=== PATIENT | female | born 1970 | race Two or more races ===

== ENCOUNTER 2020-06-06 06:48 | Emergency (ER) | payer MEDICARE, MEDICAID ==
[~2020-06-06] VITALS: Ht 157.5 cm; Wt 99.8 kg
[2020-06-06 08:42] LABS: Basophils # (auto) 0.1 10 ^3/uL (0-0.2); Basophils % (auto) 0.8 % (0.0-2.0); Eosinophils # (auto) 0.4 10 ^3/uL (0-0.8); Eosinophils % (auto) 5.2 % (0.0-7.0); Hematocrit 39.3 % (36.0-46.0); Hemoglobin 13.1 g/dL (12.2-16.2); Lymphocytes # (auto) 3.4 10 ^3/uL (0.4-5.4); Lymphocytes % (auto) 43.3 % (10.0-50.0); Mean Corpuscular Hemoglobin 28.7 pg (28.0-32.0); Mean Corpuscular Hgb Conc. 33.3 g/dL (32.0-36.0); Mean Corpuscular Volume 86.2 fL (80.0-100.0); Monocytes # (auto) 0.4 10 ^3/uL (0-1.3); Monocytes % (auto) 5.3 % (0.0-12.0); Neutrophils # (auto) 3.5 10 ^3/uL (1.6-8.6); Neutrophils % (auto) 45.4 % (37.0-80.0); Nucleated Red Blood Cells % 0.2 %; Platelet Count (auto) 168 10^3/uL (140-450); Red Blood Cells 4.56 10^6/uL (4.0-5.20); Red Cell Distribution Width 14.5 % (11.8-14.3); White Blood Cell 7.7 10^3/uL (4.4-10.8)
[2020-06-06 09:04] LABS: Albumin 3.3 g/dL (3.4-5.0); Anion Gap 10 (5-15); Blood Urea Nitrogen 12 mg/dL (7-18); Calcium 8.5 mg/dL (8.5-10.1); Carbon Dioxide 24 mmol/L (21-32); Chloride 96 mmol/L (98-107); Potassium 3.8 mmol/L (3.5-5.1); Sodium 130 mmol/L (136-145)
[2020-06-06 09:10] LABS: Alanine Aminotransferase 57 U/L (13-56); Alkaline Phosphatase 119 U/L (45-117); Aspartate Aminotransferase 41 U/L (15-37); BUN/Creatinine Ratio 10.7; Bilirubin, Total 0.2 mg/dL (0.2-1.0); GFR African American 66 mL/min; GFR Non-African American 55 mL/min; Total Protein 6.6 g/dL (6.4-8.2)
[2020-06-06 09:10] LABS: Urine Bacteria FEW /hpf (None Seen); Urine Blood TRACE /uL (Negative); Urine Mucus FEW (None Seen); Urine Specific Gravity 1.028 (1.001-1.035); Urine WBC 2 /hpf (0 - 5)
[2020-06-06 09:13] LABS: Glucose 453 mg/dL (74-106)
[2020-06-06 09:30] VITALS: BP 113/65
[2020-06-06] MEDS ORDERED: InsuLIN REG 1unit/0.01ml Soln (100units/ml) IV ONE (09:30)
[2020-06-06] MEDS ORDERED: SODIUM CHLORIDE 0.9% 1,000 ML IV ONE ×2 (09:30)
[2020-06-06] MEDS ORDERED: cefTRIAXone 1GM/50ML D5W 50 ML IV ONE (10:45)
== END 2020-06-06 11:20 | disposition home or self-care (01) ==
LOC: ER 06:48
DX: E11.21 Type 2 diabetes mellitus with diabetic nephropathy (principal); E11.65 Type 2 diabetes mellitus with hyperglycemia; N39.0 Urinary tract infection, site not specified; I10 Essential (primary) hypertension; Z88.6 Allergy status to analgesic agent; Z20.822 Contact with and (suspected) exposure to COVID-19
CPT/HCPCS: 36415; 36600; 71045; 72131; 80053; 81001; 82805; 84484; 85025; 87426; 96361; 96365; 96375; 99285; C9803; J0696; J7030; U0003

== ENCOUNTER 2021-10-18 23:33 | Emergency (ER) | payer MEDICARE, MEDICAID ==
[~2021-10-18] VITALS: Ht 160 cm; Wt 114.0 kg
[2021-10-19] MEDS ORDERED: SODIUM CHLORIDE 0.9% 1,000 ML IV ONE
[2021-10-19] MEDS ORDERED: ACETAMINOPHEN 325 MG TAB PO ONE
[2021-10-19 00:41] LABS: Urine Bacteria FEW /hpf (None Seen); Urine Blood TRACE /uL (Negative); Urine Specific Gravity 1.014 (1.001-1.035); Urine WBC 232 /hpf (0 - 5)
[2021-10-19 00:48] LABS: Basophils # (auto) 0.1 10 ^3/uL (0-0.2); Basophils % (auto) 0.7 % (0.0-2.0); Eosinophils # (auto) 0 10 ^3/uL (0-0.8); Eosinophils % (auto) 0.2 % (0.0-7.0); Hematocrit 39.1 % (36.0-46.0); Hemoglobin 13.2 g/dL (12.2-16.2); Lymphocytes # (auto) 1.6 10 ^3/uL (0.4-5.4); Lymphocytes % (auto) 14.3 % (10.0-50.0); Mean Corpuscular Hemoglobin 29.2 pg (28.0-32.0); Mean Corpuscular Hgb Conc. 33.9 g/dL (32.0-36.0); Mean Corpuscular Volume 86.3 fL (80.0-100.0); Monocytes # (auto) 1.1 10 ^3/uL (0-1.3); Monocytes % (auto) 9.5 % (0.0-12.0); Neutrophils # (auto) 8.4 10 ^3/uL (1.6-8.6); Neutrophils % (auto) 75.3 % (37.0-80.0); Nucleated Red Blood Cells % 0.2 %; Red Blood Cells 4.53 10^6/uL (4.0-5.20); Red Cell Distribution Width 13.5 % (11.8-14.3); White Blood Cell 11.1 10^3/uL (4.4-10.8)
[2021-10-19 00:59] LABS: Albumin 3.5 g/dL (3.4-5.0); BUN/Creatinine Ratio 12.7; Calcium 8.3 mg/dL (8.5-10.1); Potassium 3.3 mmol/L (3.5-5.1)
[2021-10-19] MEDS ORDERED: cefTRIAXone SOD 1,000 MG VL IV ONE (01:00)
[2021-10-19 01:02] LABS: Bilirubin, Total 0.4 mg/dL (0.2-1.0); Total Protein 7.2 g/dL (6.4-8.2)
[2021-10-19] MEDS ORDERED: IBUPROFEN 800 MG TAB PO ONE (02:30)
[2021-10-19] MEDS ORDERED: CEPH-510 PO (03:23)
[2021-10-19 03:54] VITALS: BP 114/58
== END 2021-10-19 04:17 | disposition home or self-care (01) ==
LOC: ER 23:33
DX: N39.0 Urinary tract infection, site not specified (principal); R50.9 Fever, unspecified; I10 Essential (primary) hypertension; E11.9 Type 2 diabetes mellitus without complications; E78.5 Hyperlipidemia, unspecified; E03.9 Hypothyroidism, unspecified; G89.29 Other chronic pain; M54.9 Dorsalgia, unspecified; Z88.8 Allergy status to other drugs, medicaments and biological substances; Z20.822 Contact with and (suspected) exposure to COVID-19
CPT/HCPCS: 36415; 71045; 80053; 81001; 83605; 84443; 84484; 85025; 87040; 87426; 93005; 96361; 96374; 99285; J0696; J7030

== ENCOUNTER 2023-08-02 10:35 | Inpatient (IN) | payer MEDICAID ==
[~2023-08-02] VITALS: Ht 157.5 cm; Wt 94.4 kg
[~2023-08-02 10:35] MED LIST: CEPH-510 PO
[2023-08-02 11:30] LABS: Basophils # (auto) 0.1 10 ^3/uL (0-0.2); Basophils % (auto) 0.6 % (0.0-2.0); Eosinophils # (auto) 0.2 10 ^3/uL (0-0.8); Eosinophils % (auto) 1.2 % (0.0-7.0); Hematocrit 43.7 % (36.0-46.0); Hemoglobin 14.3 g/dL (12.2-16.2); Lymphocytes # (auto) 0.8 10 ^3/uL (0.4-5.4); Lymphocytes % (auto) 4.3 % (10.0-50.0); Mean Corpuscular Hemoglobin 28.4 pg (28.0-32.0); Mean Corpuscular Hgb Conc. 32.8 g/dL (32.0-36.0); Mean Corpuscular Volume 86.8 fL (80.0-100.0); Monocytes # (auto) 1.2 10 ^3/uL (0-1.3); Monocytes % (auto) 6.9 % (0.0-12.0); Neutrophils # (auto) 15.7 10 ^3/uL (1.6-8.6); Nucleated Red Blood Cells % 0.1 %; Red Blood Cells 5.04 10^6/uL (4.0-5.20); Red Cell Distribution Width 14.1 % (11.8-14.3)
[2023-08-02] MEDS: SODIUM CHLORIDE 0.9% 500 ML IV ONE (11:39)
[2023-08-02] MEDS: ONDANSETRON HCL 4 MG/2 ML VIAL IV ONE (11:39)
[2023-08-02] MEDS: MORPHINE SULFATE INJ 2 MG/ml SYRG IV ONE (11:40)
[2023-08-02 11:44] LABS: Chloride 97 mmol/L (98-107); Potassium 3.3 mmol/L (3.5-5.1); Sodium 131 mmol/L (136-145)
[2023-08-02] MEDS: ACETAMINOPHEN 325 MG TAB PO ONE (11:44)
[2023-08-02 11:45] LABS: Anion Gap 10 (5-15); Carbon Dioxide 24 mmol/L (20-30)
[2023-08-02] MEDS: SODIUM CHLORIDE 0.9% 1,500 ML IV ONE (11:45)
[2023-08-02] MEDS: VANCOMYCIN 1GM/200ML 200 ML IV ONE (11:48)
[2023-08-02 11:50] LABS: BUN/Creatinine Ratio 6.2 (10.0-20.0); Blood Urea Nitrogen 8 mg/dL (9-23); Glucose 252 mg/dL (74-106)
[2023-08-02 12:12] LABS: Lactic Acid w/Reflex 2.2 mmol/L (0.4-2.0)
[2023-08-02 12:45] VITALS: PULSE 53; RESP 18; O2SAT 96
[2023-08-02] MEDS ORDERED: MELO15TA29 PO (14:15)
[2023-08-02] MEDS ORDERED: ALBU108A5 INH (14:15)
[2023-08-02] MEDS ORDERED: FLUT50SP NAS (14:15)
[2023-08-02] MEDS ORDERED: TIZA6CAP10 PO (14:15)
[2023-08-02] MEDS ORDERED: DULO1CAP6 PO (14:15)
[2023-08-02] MEDS ORDERED: ATOR10TA52 PO (14:15)
[2023-08-02] MEDS ORDERED: LISI2.5T47 PO (14:15)
[2023-08-02] MEDS ORDERED: EMPA1TAB PO (14:15)
[2023-08-02] MEDS ORDERED: LINA5TAB PO (14:15)
[2023-08-02] MEDS ORDERED: METF-1145 PO (14:15)
[2023-08-02] MEDS ORDERED: TRAZ-227 PO (14:15)
[2023-08-02] MEDS ORDERED: OXYC-998 PO (14:15)
[2023-08-02] MEDS: SULFAMETH-TRIMETH 80/16MG-ML 15 ML in D5W 5% 500 ML IV ONE (14:49)
[2023-08-02] MEDS ORDERED: ONDANSETRON HCL 4 MG/2 ML VIAL IV PRN (15:15)
[2023-08-02] MEDS ORDERED: ACETAMINOPHEN 325 MG TAB PO PRN (15:15)
[2023-08-02] MEDS ORDERED: DOCUSATE SOD 100 MG CAP PO PRN (15:15)
[2023-08-02] MEDS ORDERED: VANCOMYCIN PER PHARMACY 0 MG IV SCH (15:15)
[2023-08-02] MEDS: SODIUM CHLORIDE 0.9% 1,000 ML IV SCH (15:37)
[2023-08-02] MEDS: HYDROcodone-ACET 5/325MG TAB PO PRN (16:06)
[2023-08-02] MEDS ORDERED: DEXTROSE (50%) 50ML SYRG IV PRN (19:15)
[2023-08-02] MEDS: MORPHINE SULFATE INJ 2 MG/ml SYRG IV PRN (19:30)
[2023-08-02] MEDS: ACCU-CHEK COMFORT CURVE STRIP VI SCH (21:28)
[2023-08-02] MEDS: InsuLIN REG 1unit/0.01ml Soln (100units/ml) SC SCH (21:36)
[2023-08-02 22:00] VITALS: BP 125/73; PULSE 88; RESP 18; TEMP 98.2; O2SAT 95
[2023-08-02] MEDS: SODIUM CHLOR 0.9% PF (SALINE LOCK) 10ML VIAL/SYR IV SCH (22:00)
[2023-08-02] MEDS: DULoxetine HCL 30 MG CAP PO SCH (23:04)
[2023-08-02] MEDS: traZODone HCL 50 MG TAB PO SCH (23:04)
[2023-08-02] MEDS: CLINDAMYCIN 600MG IV 50 ML IV SCH (23:05)
[2023-08-03] VITALS (8 sets, daily range): BP systolic 98–142; BP diastolic 57–73; PULSE 83–95; RESP 16–20; TEMP 97.6–98.5; O2SAT 93–97
[2023-08-03 06:45] LABS: Basophils # (auto) 0 10 ^3/uL (0-0.2); Basophils % (auto) 0.2 % (0.0-2.0); Eosinophils # (auto) 0 10 ^3/uL (0-0.8); Eosinophils % (auto) 0.3 % (0.0-7.0); Hematocrit 36.6 % (36.0-46.0); Hemoglobin 12.2 g/dL (12.2-16.2); Lymphocytes # (auto) 0.8 10 ^3/uL (0.4-5.4); Lymphocytes % (auto) 5.5 % (10.0-50.0); Mean Corpuscular Hemoglobin 28.4 pg (28.0-32.0); Mean Corpuscular Hgb Conc. 33.4 g/dL (32.0-36.0); Monocytes # (auto) 0.9 10 ^3/uL (0-1.3); Monocytes % (auto) 5.9 % (0.0-12.0); Neutrophils # (auto) 13.2 10 ^3/uL (1.6-8.6); Neutrophils % (auto) 88.1 % (37.0-80.0); Red Blood Cells 4.31 10^6/uL (4.0-5.20); Red Cell Distribution Width 13.7 % (11.8-14.3)
[2023-08-03 07:04] LABS: Alanine Aminotransferase 14 U/L (7-40); Albumin 4.2 g/dL (3.2-4.8); Alkaline Phosphatase 131 U/L (46-116); Anion Gap 7 (5-15); Aspartate Aminotransferase 10 U/L (13-40); BUN/Creatinine Ratio 12.2 (10.0-20.0); Blood Urea Nitrogen 12 mg/dL (9-23); Calcium 9.8 mg/dL (8.7-10.4); Carbon Dioxide 23 mmol/L (20-30); Chloride 107 mmol/L (98-107); Glucose 174 mg/dL (74-106); Potassium 4.3 mmol/L (3.5-5.1); Sodium 137 mmol/L (136-145)
[2023-08-03 07:05] LABS: Bilirubin, Total 0.3 mg/dL (0.2-1.0); Total Protein 6.9 g/dL (5.7-8.2)
[2023-08-03] MEDS: metFORMIN HYDROCHLORIDE 500 MG TAB PO SCH (08:00)
[2023-08-03] MEDS: ATORVASTATIN 20 MG TAB PO SCH (08:19)
[2023-08-03] MEDS: EMPAGLIFLOZIN 10 MG TAB PO SCH (08:19)
[2023-08-03] MEDS: LISINOPRIL 5 MG TAB PO SCH (10:19)
[2023-08-03] MEDS: levoFLOXacin 500MG 100 ML IV SCH (12:36)
[2023-08-03] MEDS: oxyCODONE HCL 5MG TAB PO PRN (17:02)
[2023-08-03] MEDS: VANCOMYCIN 1GM/200ML 200 ML IV SCH (18:13)
[2023-08-04] VITALS (9 sets, daily range): BP systolic 100–142; BP diastolic 60–76; PULSE 69–91; RESP 17–20; TEMP 97.5–98.1; O2SAT 94–98
[2023-08-04 07:26] LABS: Basophils # (auto) 0 10 ^3/uL (0-0.2); Basophils % (auto) 0.2 % (0.0-2.0); Eosinophils # (auto) 0.1 10 ^3/uL (0-0.8); Eosinophils % (auto) 1.2 % (0.0-7.0); Hematocrit 38.1 % (36.0-46.0); Hemoglobin 12.6 g/dL (12.2-16.2); Lymphocytes # (auto) 1.4 10 ^3/uL (0.4-5.4); Lymphocytes % (auto) 11.2 % (10.0-50.0); Mean Corpuscular Hemoglobin 28.3 pg (28.0-32.0); Mean Corpuscular Hgb Conc. 33.1 g/dL (32.0-36.0); Mean Corpuscular Volume 85.5 fL (80.0-100.0); Monocytes # (auto) 0.6 10 ^3/uL (0-1.3); Monocytes % (auto) 4.8 % (0.0-12.0); Neutrophils # (auto) 10.1 10 ^3/uL (1.6-8.6); Neutrophils % (auto) 82.6 % (37.0-80.0); Red Blood Cells 4.46 10^6/uL (4.0-5.20); Red Cell Distribution Width 14.5 % (11.8-14.3); White Blood Cell 12.2 10^3/uL (4.4-10.8)
[2023-08-04 07:45] LABS: Anion Gap 8 (5-15); Calcium 9.6 mg/dL (8.7-10.4); Carbon Dioxide 23 mmol/L (20-30); Chloride 110 mmol/L (98-107); Potassium 4.5 mmol/L (3.5-5.1); Sodium 141 mmol/L (136-145)
[2023-08-04 07:48] LABS: INR 0.94 (0.9-1.15); Partial Thromboplastin Time 27.6 SEC (24.5-34.5)
[2023-08-04 07:51] LABS: Blood Urea Nitrogen 18 mg/dL (9-23); Glucose 188 mg/dL (74-106)
[2023-08-04] MEDS ORDERED: PROPOFOL 10 MG/ML 20 ML IV ONE (12:30)
[2023-08-04] MEDS ORDERED: fentaNYL CITRATE 100 MCG/2 ML VL ONE (12:30)
[2023-08-04] MEDS ORDERED: MEPERIDINE HCL (50 MG/ML) 1 ML VIAL ONE (12:30)
[2023-08-04] MEDS ORDERED: ePHEDrine SULFATE 50 MG/ML AMP ONE (12:49)
[2023-08-04] MEDS ORDERED: ONDANSETRON HCL 4 MG/2 ML VIAL ONE (12:59)
[2023-08-04] MEDS: LIDOCAINE W/ EPINEPHRINE 1% 20ML VIAL ONE (13:08)
[2023-08-04] MEDS ORDERED: MEPERIDINE HCL (25 MG/ML) 1ML VIAL IV PRN (13:30)
[2023-08-04] MEDS ORDERED: HYDROmorphone HCL 2 MG/ML VL/or syr IV PRN (13:30)
[2023-08-04] MEDS: metroNIDAZOLE 500MG/100ML 100 ML IV SCH (14:00)
[2023-08-04] MEDS: ONDANSETRON HCL 4 MG/2 ML VIAL IV ONE (14:49)
[2023-08-04] MEDS: BUPIVACAINE 0.25% INJ 50ML VIAL ONE (14:49)
[2023-08-04] MEDS: metroNIDAZOLE 500MG/100ML 100 ML IV ONE (14:49)
[2023-08-04] MEDS: VANCOMYCIN 1GM/200ML 200 ML IV SCH (15:57)
[2023-08-05 01:00] VITALS: BP 100/61; PULSE 86; RESP 20; TEMP 98.1; O2SAT 95
[2023-08-05 05:00] VITALS: BP 113/60; PULSE 70; RESP 15; TEMP 98.1; O2SAT 96
[2023-08-05 06:46] LABS: Basophils # (auto) 0.1 10 ^3/uL (0-0.2); Basophils % (auto) 0.6 % (0.0-2.0); Eosinophils # (auto) 0.2 10 ^3/uL (0-0.8); Eosinophils % (auto) 1.9 % (0.0-7.0); Hematocrit 36.7 % (36.0-46.0); Hemoglobin 11.9 g/dL (12.2-16.2); Lymphocytes % (auto) 18.9 % (10.0-50.0); Mean Corpuscular Hgb Conc. 32.6 g/dL (32.0-36.0); Monocytes # (auto) 0.6 10 ^3/uL (0-1.3); Monocytes % (auto) 5.3 % (0.0-12.0); Neutrophils # (auto) 7.9 10 ^3/uL (1.6-8.6); Neutrophils % (auto) 73.3 % (37.0-80.0); Red Blood Cells 4.26 10^6/uL (4.0-5.20); Red Cell Distribution Width 14.6 % (11.8-14.3); White Blood Cell 10.7 10^3/uL (4.4-10.8)
[2023-08-05 07:08] LABS: Chloride 105 mmol/L (98-107); Potassium 4.1 mmol/L (3.5-5.1); Sodium 136 mmol/L (136-145)
[2023-08-05 07:09] LABS: Anion Gap 4 (5-15); Carbon Dioxide 27 mmol/L (20-30)
[2023-08-05 07:10] LABS: Calcium 9.3 mg/dL (8.5-10.1)
[2023-08-05 07:15] LABS: BUN/Creatinine Ratio 16.7 (10.0-20.0); Blood Urea Nitrogen 16 mg/dL (9-23); Glucose 210 mg/dL (74-106)
[2023-08-05 08:00] VITALS: PULSE 75; RESP 20; O2SAT 96
[2023-08-05] MEDS: metroNIDAZOLE 500 MG TAB PO SCH (08:11)
[2023-08-05 09:00] VITALS: BP 122/68; PULSE 67; RESP 18; TEMP 97.4; O2SAT 19
[2023-08-05] MEDS ORDERED: DEXTROSE (50%) 50ML SYRG IV PRN (11:30)
[2023-08-05] MEDS: ACCU-CHEK COMFORT CURVE STRIP VI SCH (11:55)
[2023-08-05] MEDS: InsuLIN REG 1unit/0.01ml Soln (100units/ml) SC SCH (11:56)
[2023-08-05] MEDS ORDERED: BACDST PO (12:30)
[2023-08-05 13:00] VITALS: BP 101/65; PULSE 69; RESP 18; TEMP 97.3; O2SAT 96
[2023-08-05 13:49] VITALS: BP 144/80
[2023-08-05] MEDS: INFLUENZA QUAD 2023-2024 0.5 ML SYRG IM ONE (14:34)
[2023-08-05] MEDS ORDERED: InsuLIN REG 1unit/0.01ml Soln (100units/ml) SC SCH (22:00)
[2023-08-05] MEDS ORDERED: INSULIN LANTUS (GLARGINE) 1 /0.01ml (100units/ml) SC SCH (22:00)
== END 2023-08-05 14:35 | disposition home or self-care (01) | DRG 720 ==
LOC: ER 10:35 → OVERFLOW 15:17 → EAST 21:57
PROVIDERS: ADMIT Nurse Practitioner Family; ATTEND Nurse Practitioner Acute Care
PROC: 0Y900ZZ Drainage of Right Buttock, Open Approach (ICD-10-PCS; principal; 2023-08-04 12:37)
DX: A41.9 Sepsis, unspecified organism (principal); E11.40 Type 2 diabetes mellitus with diabetic neuropathy, unspecified; L02.215 Cutaneous abscess of perineum; A05.9 Bacterial foodborne intoxication, unspecified; E05.90 Thyrotoxicosis, unspecified without thyrotoxic crisis or storm; D86.9 Sarcoidosis, unspecified; E11.65 Type 2 diabetes mellitus with hyperglycemia; L02.31 Cutaneous abscess of buttock; G89.29 Other chronic pain; I10 Essential (primary) hypertension; K21.9 Gastro-esophageal reflux disease without esophagitis; S31.819A Unspecified open wound of right buttock, initial encounter; E78.5 Hyperlipidemia, unspecified; J45.909 Unspecified asthma, uncomplicated; F17.210 Nicotine dependence, cigarettes, uncomplicated; E66.9 Obesity, unspecified; Z88.1 Allergy status to other antibiotic agents; Z68.38 Body mass index [BMI] 38.0-38.9, adult; Z79.899 Other long term (current) drug therapy; Z79.4 Long term (current) use of insulin; X58.XXXA Exposure to other specified factors, initial encounter; Y93.89 Activity, other specified; Y92.89 Other specified places as the place of occurrence of the external cause; Y99.8 Other external cause status
CPT/HCPCS: 36415; 71045; 72192; 80048; 80053; 80202; 81025; 82962; 83036; 83605; 84702; 85025; 85610; 85730; 86850; 86900; 86901; 87040; 87070; 87075; 87077; 87186; 87205; 96365; 96367; 96375; G0378; J1815; J1956; J2405; J2704; J3490

== ENCOUNTER 2024-03-26 11:09 | Emergency (ER) | payer MEDICAID ==
[~2024-03-26] VITALS: Ht 165.1 cm; Wt 92.2 kg
[~2024-03-26 11:09] MED LIST changes: +ALBU108A5 INH; +ATOR10TA52 PO; +BACDST PO; -CEPH-510 PO; +DULO1CAP6 PO; +EMPA1TAB PO; +FLUT50SP NAS; +LINA5TAB PO; +LISI2.5T47 PO; +MELO15TA29 PO; +METF-1145 PO; +OXYC-998 PO; +TIZA6CAP10 PO; +TRAZ-227 PO
--- NOTE | 2024-03-26 11:21 | ECG ---
[facility] Test Date: 2024-03-26 Test Time: 11:14:47 Pat Name: LUNA PAEZ Department: ER Room: Gender: F Cupola Liner: SUKHJINDER : 1970 Requested By: DAYANA TAYLOR Order Number: [id number] Reading MD: Christopher Oliveros Measurements Intervals Leonore Rate: 98 P: 124 GA: 136 QRS: 75 QRSD: 92 T: -47 QT: 317 QTc: 405 Interpretive Statements Sinus rhythm Low voltage, precordial leads Borderline T abnormalities, diffuse leads Electronically Signed On 03-29-2024 8:50:23 PST by Christopher Oliveros Please click the below link to view image of tracing.
--- NOTE | 2024-03-26 11:31 | ED.PDOC ---
SOB-HPI HPI Comments 53-year-old female with PMHx Asthma brought in by EMS presents with a chief complaint of SOB x last night with associated cough. Patient states that she was at urgent care and had SOB and was given a breathing treatment and 40mg of Prednisone. Patient mentions that her cough is productive and is wet at this time. Patient mentions that she did an at home breathing treatment, but reports no relief of symptoms. No other symptoms or modifying factors present at this time. Chief Complaint: Shortness of Breath Time Seen by MD: 11:24 Primary Care Provider: JADEN Negron notes: Medications, Allergies Information Source: Patient Mode of Arrival: EMS Severity: Moderate Timing: Hours Duration: Since onset Context: At Rest PE Risk Factors: None History of: Asthma Prehospital treatment: Breathing Tx, Oxygen Associated Signs and Symptoms: Cough, Nasal Congestion If cough with SOB: Productive Past Medical History PAST MEDICAL HISTORY: Asthma, Depression, DM, GERD, High Lipids, HTN, Thyroid DIRECTOR SERVICE History: No Pertinent DIRECTOR SERVICE History Family History Family History: Reviewed,noncontributory to illness Social History Smoker: Non-Smoker Alcohol: Denies ETOH Use Drugs: Denies Drug Use Lives In: Home Constitutional: denies: chills, diaphoresis, fatigue, fever, malaise, sweats, weakness, others EENTM: denies: blurred vision, double vision, ear bleeding, ear discharge, ear drainage, ear pain, ear ringing, eye pain, eye redness, hearing loss, mouth pain, mouth swelling, nasal discharge, nose bleeding, nose congestion, nose pain, photophobia, tearing, throat pain, throat swelling, voice changes, others Respiratory: reports: cough, shortness of breath; denies: hemoptysis, orthopnea, SOB at rest, SOB with excertion, stridor, wheezing, others Cardiovascular: denies: chest pain, dizzy spells, diaphoresis, Dyspnea on exertion, edema, irregular heart beat, left arm pain, lightheadedness, palpitations, PND, syncope, others Gastrointestinal: denies: abdomen distended, abdominal pain, blood streaked bowels, constipated, diarrhea, dysphagia, difficulty swallowing, hematemesis, melena, nausea, poor appetite, poor fluid intake, rectal bleeding, rectal pain, vomiting, others Genitourinary: denies: abnormal vagina bleeding, burning, dyspareunia, dysuria, flank pain, frequency, hematuria, incontinence, pain, , vagina discharge, urgency, others Neurological: denies: dizziness, fainting, headache, left sided numbness, left sided weakness, numbness, paresthesia, pre-existing deficit, right sided numbness, right sided weakness, seizure, speech problems, tingling, tremors, weakness, others Musculoskeletal: denies: back pain, gout, joint pain, joint swelling, muscle pain, muscle stiffness, neck pain, others Integumetry: denies: bruises, change in color, change in hair/nails, dryness, laceration, lesions, lumps, rash, wounds, others Allergic/Immunocompromised: denies: Difficulty Healing, Frequent Infections, Hives, Itching, others Hematologic/Lymphatic: denies: anemia, blood clots, easy bleeding, easy bruising, swollen glands, others Endocrine: denies: excessive hunger, excessive sweating, excessive thirst, excessive urination, flushing, intolerance to cold, intolerance to heat, unexplained weight gain, unexplained weight loss, others Psychiatric: denies: anxiety, bipolar disorder, depression, hopeless, panic disorder, schizophrenia, sleepless, suicidal, others All Other Systems: Reviewed and Negative Physical Exam General Appearance: Mild Distress, Normal HEENT: Normal ENT Inspection, Pharynx Normal, TMs Normal Neck: Full Range of Motion, Non-Tender, Normal, Normal Inspection Respiratory: Chest Non-Tender, Lungs Clear, No Accessory Muscle Use, No Respiratory Distress, Normal Breath Sounds Cardiovascular: No Edema, No JVD, No Murmur, No Gallop, Normal Peripheral Pulses, Regular Rate/Rhythm Breast Exam: Deferred Gastrointestinal: No Organomegaly, Non Tender, No Pulsatile Mass, Normal Bowel Sounds, Soft Genitalia: Deferred Pelvic: Deferred Rectal: Deferred Extremities: No calf tenderness, Normal capillary refill, Normal inspection, No rmal range of motion, Non-tender, No pedal edema Musculoskeletal : Apperance: Normal Neurologic: Alert, ict trainer II-XII nml as Tested, No Motor Deficits, Normal Affect, Normal Mood, No Sensory Deficits Cerebellar Function: Normal Reflexes: Normal Skin: Dry, Normal Color, Warm Lymphatic: No Adenopathy Was a procedure done? Was a procedure done?: No Differential Dx Differential Diagnosis: Asthma, Bronchitis, CHF, COPD, Pneumonia, Pulmonary Embolism, Respiratory Distress, URI, Other X-Ray, Labs, Meds, VS Vital Signs Date Time Temp Pulse Resp B/P (MAP) Pulse Ox O2 Delivery O2 Flow Rate FiO2 03/26/24 13:36 98.0 109 22 119/87 (98) 93 98.0 03/26/24 11:48 100 Nasal Cannula* 3 32 03/26/24 11:46 103 22 100 Nasal Cannula* 3 32 03/26/24 11:46 103 22 141/64 (89) 100 03/26/24 11:40 16 95 Nasal Cannula* 2 28 03/26/24 11:14 98 03/26/24 11:14 99.6 94 16 153/76 (101) 97 Lab Test 03/26/24 11:40 Range/Units White Blood Count 4.7 4.4-10.8 10^3/uL Red Blood Count 4.75 4.0-5.20 10^6/uL Hemoglobin 13.6 12.2-16.2 g/dL Hematocrit 41.2 36.0-46.0 % Mean Corpuscular Volume 86.8 80.0-100.0 fL Mean Corpuscular Hemoglobin 28.5 28.0-32.0 pg Mean Corpuscular Hemoglobin Concent 32.9 32.0-36.0 g/dL Red Cell Distribution Width 15.1 H 11.8-14.3 % Platelet Count 169 140-450 10^3/uL Mean Platelet Volume 9.0 6.9-10.8 fL Neutrophils (%) (Auto) 77.3 37.0-80.0 % Lymphocytes (%) (Auto) 8.8 L 10.0-50.0 % Monocytes (%) (Auto) 10.1 0.0-12.0 % Eosinophils (%) (Auto) 3.1 0.0-7.0 % Basophils (%) (Auto) 0.7 0.0-2.0 % Neutrophils # (Auto) 3.6 1.6-8.6 10 ^3/uL Lymphocytes # (Auto) 0.4 0.4-5.4 10 ^3/uL Monocytes # (Auto) 0.5 0-1.3 10 ^3/uL Eosinophils # (Auto) 0.1 0-0.8 10 ^3/uL Basophils # (Auto) 0 0-0.2 10 ^3/uL Nucleated Red Blood Cells 0.0 % Sodium Level 137 136-145 mmol/L Potassium Level 4.3 3.5-5.1 mmol/L Chloride Level 105 98-107 mmol/L Carbon Dioxide Level 26 20-31 mmol/L Anion Gap 6 5-15 Blood Urea Nitrogen 16 9-23 mg/dL Creatinine 1.01 0.550-1.02 mg/dL Glomerular Filtration Rate Calc 67 >90 mL/min BUN/Creatinine Ratio 15.8 10.0-20.0 Serum Glucose 170 H 74-106 mg/dL Calcium Level 9.5 8.7-10.4 mg/dL Total Bilirubin 0.4 0.2-1.0 mg/dL Aspartate Amino Transferase (AST) 57 H 13-40 U/L Alanine Aminotransferase (ALT) 32 7-40 U/L Alkaline Phosphatase 183 H 46-116 U/L Troponin I High Sensitivity 5 </=34 ng/L B-Type Natriuretic Peptide 132.59 0-100 pg/mL Total Protein 7.3 5.7-8.2 g/dL Albumin 4.9 H 3.2-4.8 g/dL Current Medications Medications (Trade) Dose Ordered Sig/Devan Route Start Time Stop Time Status Last Admin Albuterol (Ventolin Medneb) 5 mg ONCE ONCE [facility] 03/26/24 11:30 03/26/24 11:31 DC 03/26/24 11:38 Ipratropium Arrey (Atrovent Medneb) 0.5 mg ONCE ONCE N 03/26/24 11:30 03/26/24 11:31 DC 03/26/24 11:38 Time of 1ST Reevaluation: 11:54 Reevaluation 1ST: Unchanged Time of 2ND Reevaluation: 12:45 Reevaluation 2ND: Improved Patient Education/Counseling: Diagnosis, Treatment, Prognosis Family Education/Counseling: Diagnosis, Treatment, Prognosis Departure 1 Departure Time of Disposition: 13:00 Impression: Primary Impression: COPD with acute exacerbation Additional Impression: Upper respiratory infection Disposition: 01 HOME / SELF CARE / HOMELESS Condition: Stable e-Prescriptions Promethazine-Dm (Promethazine Dm 6.25-15 mg/5Ml) 1 Nettie Nettie 1 TSP PO Q6HP PRN for 20 Days, #120 ML Prov: DAYANA TAYLOR MD 03/26/24 Albuterol Sulfate (Albuterol Sulfate Hfa) 108 Mcg/Act Aer 1 PUFF IN Q4HP PRN for 9 Days, #1 AER Prov: DAYANA TAYLOR MD 03/26/24 Prednisone (Prednisone) 20 Mg Tab 20 MG PO BID for 5 Days, #10 TAB Prov: DAYANA TAYLOR MD 03/26/24 Azithromycin (Azithromycin) 500 Mg Tab 1 TAB PO DAILY for 7 Days, #7 TAB Prov: DAYANA TAYLOR MD 03/26/24 Discharged With: Self Critical Care Note Critical Care Time?: No Stability Stability form required: No Heart Score Heart Score: Heart Score Response (Comments) Value History Slightly Suspicious 0 EKG Normal 0 Age 45-64 1 Risk Factors 1 or 2 risk factors 1 Troponin Normal limit 0 Total 2 I personally scribed for DAYANA TAYLOR MD ([email or web address]) on 03/26/24 at 11:31. Electronically submitted by Aquiles Valdes ([email or web address]). DAYANA TAYLOR MD Mar 26, 2024 11:31
[2024-03-26] MEDS: ALBUTEROL SULF 2.5 MG/0.5ML(0.5%) NEB SOLN HHN ONE (11:38)
[2024-03-26] MEDS: IPRATROPIUM BROM 0.5 MG/2.5ML INH SOL HHN ONE (11:38)
[2024-03-26 11:46] VITALS: PULSE 103; RESP 22; O2SAT 100
[2024-03-26 12:04] LABS: Basophils # (auto) 0 10 ^3/uL (0-0.2); Basophils % (auto) 0.7 % (0.0-2.0); Eosinophils # (auto) 0.1 10 ^3/uL (0-0.8); Eosinophils % (auto) 3.1 % (0.0-7.0); Hematocrit 41.2 % (36.0-46.0); Hemoglobin 13.6 g/dL (12.2-16.2); Lymphocytes # (auto) 0.4 10 ^3/uL (0.4-5.4); Lymphocytes % (auto) 8.8 % (10.0-50.0); Mean Corpuscular Hemoglobin 28.5 pg (28.0-32.0); Mean Corpuscular Hgb Conc. 32.9 g/dL (32.0-36.0); Mean Corpuscular Volume 86.8 fL (80.0-100.0); Monocytes # (auto) 0.5 10 ^3/uL (0-1.3); Monocytes % (auto) 10.1 % (0.0-12.0); Neutrophils # (auto) 3.6 10 ^3/uL (1.6-8.6); Neutrophils % (auto) 77.3 % (37.0-80.0); Platelet Count (auto) 169 10^3/uL (140-450); Red Blood Cells 4.75 10^6/uL (4.0-5.20); Red Cell Distribution Width 15.1 % (11.8-14.3); White Blood Cell 4.7 10^3/uL (4.4-10.8)
[2024-03-26 12:08] LABS: Alanine Aminotransferase 32 U/L (7-40); Albumin 4.9 g/dL (3.2-4.8); Alkaline Phosphatase 183 U/L (46-116); Anion Gap 6 (5-15); Aspartate Aminotransferase 57 U/L (13-40); BUN/Creatinine Ratio 15.8 (10.0-20.0); Bilirubin, Total 0.4 mg/dL (0.2-1.0); Blood Urea Nitrogen 16 mg/dL (9-23); Calcium 9.5 mg/dL (8.7-10.4); Carbon Dioxide 26 mmol/L (20-31); Chloride 105 mmol/L (98-107); Glucose 170 mg/dL (74-106); Potassium 4.3 mmol/L (3.5-5.1); Sodium 137 mmol/L (136-145); Total Protein 7.3 g/dL (5.7-8.2)
--- NOTE | 2024-03-26 12:12 | DVH ---
CHEST RADIOGRAPH Indication: SOB Technique: Single frontal view of the chest was obtained COMPARISON: XY CHEST XRAY 1 VIEW on DOS: 08/03/23, FINDINGS: Lines and Tubes: None Lungs: Clear Pleura: No effusion. No pneumothorax. Cardiomediastinal contours: Unremarkable Bones: Degenerative changes. IMPRESSION: 1. No acute disease.
[2024-03-26] MEDS ORDERED: AZIT500T66 PO (13:19)
[2024-03-26] MEDS ORDERED: PRED20TA2 PO (13:19)
[2024-03-26] MEDS ORDERED: ALBU108A5 IN (13:19)
[2024-03-26] MEDS ORDERED: PROM1SOL4 PO (13:34)
[2024-03-26 13:36] VITALS: BP 119/87; PULSE 109; RESP 22; TEMP 98; O2SAT 93
== END 2024-03-26 13:41 | disposition home or self-care (01) ==
LOC: ER 11:09 → EDBD 11:09 → EDUNIT# 11:09 → ER 13:38
DX: J44.1 Chronic obstructive pulmonary disease with (acute) exacerbation (principal); J06.9 Acute upper respiratory infection, unspecified; E11.9 Type 2 diabetes mellitus without complications; I10 Essential (primary) hypertension; K21.9 Gastro-esophageal reflux disease without esophagitis; R05.9 Cough, unspecified; F32.9 Major depressive disorder, single episode, unspecified; E03.9 Hypothyroidism, unspecified; E78.5 Hyperlipidemia, unspecified
CPT/HCPCS: 36415; 71045; 80053; 83880; 84484; 85025; 93005; 94640

== ENCOUNTER 2024-05-29 18:39 | Inpatient (IN) | payer MEDICAID, MEDICARE ==
[~2024-05-29] VITALS: Ht 160 cm; Wt 68.8 kg
[~2024-05-29 18:39] MED LIST changes: +ALBU108A5 IN; +AZIT500T66 PO; +PRED20TA2 PO; +PROM1SOL4 PO
--- NOTE | 2024-05-29 20:04 | DVH ---
CHEST RADIOGRAPH Indication: sob Technique: Single frontal view of the chest was obtained Comparison: XY CHEST XRAY 1 VIEW on DOS: 03/26/24, XY CHEST XRAY 1 VIEW on DOS: 08/03/23, CHEST PORTABLE on DOS: 10/19/21 FINDINGS: Lines and Tubes: None Lungs: No focal consolidation. Mild interstitial prominence which may be from underpenetration of the image.. Pleura: No effusion. No pneumothorax. Cardiomediastinal contours: Unremarkable Bones: No acute osseous abnormality. IMPRESSION: No acute cardiopulmonary disease.
[2024-05-29 20:13] LABS: Hematocrit 46.1 % (36.0-46.0); Hemoglobin 15.2 g/dL (12.2-16.2); Mean Corpuscular Hemoglobin 28.2 pg (28.0-32.0); Mean Corpuscular Hgb Conc. 32.9 g/dL (32.0-36.0); Mean Corpuscular Volume 85.7 fL (80.0-100.0); Platelet Count (auto) 246 10^3/uL (140-450); Red Blood Cells 5.38 10^6/uL (4.0-5.20); Red Cell Distribution Width 15.1 % (11.8-14.3); White Blood Cell 8.3 10^3/uL (4.4-10.8)
[2024-05-29 20:17] LABS: Basophils % (manual) 0 (0.0-2.0); Blast Cells 0; Metamyelocytes % 0; Myelocytes % 0; Promyelocytes % 0; Reactive Lymphocytes 0
[2024-05-29 20:22] LABS: Potassium 4.2 mmol/L (3.5-5.1); Sodium 140 mmol/L (136-145)
[2024-05-29 20:23] LABS: Anion Gap 7 (5-15); Calcium 9.9 mg/dL (8.7-10.4); Carbon Dioxide 25 mmol/L (20-31)
[2024-05-29 20:27] LABS: Chloride 108 mmol/L (98-107)
[2024-05-29 20:28] LABS: BUN/Creatinine Ratio 21.1 (10.0-20.0); Blood Urea Nitrogen 20 mg/dL (9-23)
[2024-05-29 20:29] LABS: Glucose 174 mg/dL (74-106)
--- NOTE | 2024-05-29 21:00 | ED.PDOC ---
History of Present Illness HPI Comments 54 y/o obese F presents with c/o intermittent shortness of breath and productive cough for 1 month, today. Patient endorses on no improvement to symptoms after being seen and evaluated at several urgent care facilities since onset. She reports on being told on having PNA, initially, with said visits and having temporary relief with Abx treatment. Patient states on being told on only having a cold for latest urgent care visit 2 weeks ago. She denies any chest pain, fever, chills, or other associated symptoms or modifiers at this time. Chief Complaint: Shortness of Breath Time Seen by MD: 19:00 Primary Care Provider: unknown Reviewed Notes: Nurses Notes, Medications, Allergies Allergies: Coded Allergies: Cephalexin (Verified Allergy, Severe, 08/02/23) Hydroxychloroquine (Verified Allergy, Unknown, 06/06/20) Home Meds Active Scripts Promethazine-Dm (Promethazine Dm 6.25-15 mg/5Ml) 1 Nettie Nettie, 1 TSP PO Q6HP PRN for 20 Days, #120 ML Prov:DAYANA TAYLOR MD 03/26/24 Albuterol Sulfate (Albuterol Sulfate Hfa) 108 Mcg/Act Aer, 1 PUFF IN Q4HP PRN for 9 Days, #1 AER Prov:DAYANA TAYLOR MD 03/26/24 Prednisone (Prednisone) 20 Mg Tab, 20 MG PO BID for 5 Days, #10 TAB Prov:DAYANA TAYLOR MD 03/26/24 Azithromycin (Azithromycin) 500 Mg Tab, 1 TAB PO DAILY for 7 Days, #7 TAB Prov:DAYANA TAYLOR MD 03/26/24 Sulfamethoxazole W/Trimethopri (Bactrim Ds Tablet) 1 Tab Tb, 1 TAB PO BID for 10 Days, #20 TAB Prov:BAM GARZA LINE ERECTOR 08/05/23 Reported Medications Metformin Hydrochloride (Metformin Hcl Er) 500 Mg Tab, 2 TAB PO QAM 08/02/23 Trazodone Hcl (Trazodone Hcl) 50 Mg Tab, 1 TAB PO HS 08/02/23 Linagliptin Base (TRADJENTA) 5 Mg Tab, 1 TAB PO DAILY 08/02/23 Meloxicam (Meloxicam) 15 Mg Tab, 1 TAB PO DAILY 08/02/23 Tizanidine Hydrochloride (TIZANIDINE HCL) 6 Mg Cap, 1 CAP PO QID PRN 08/02/23 Oxycodone HCl (Oxycodone Hydrochloride) 10 Mg Tab, 1 TAB PO TID 08/02/23 Albuterol Sulfate (Albuterol Sulfate Hfa) 108 Mcg/Act Aer, 2 PUFF INH Q4HPRN PRN 08/02/23 Fluticasone Propionate (Nasal) (Fluticasone Propionate) 50 Mcg/Act Spr, 1 SPRAY JACKI DAILY 08/02/23 Lisinopril (Lisinopril) 2.5 Mg Tab, 1 TAB PO DAILY 08/02/23 Atorvastatin Calcium (ATORVASTATIN CALCIUM) 10 Mg Tab, 1 TAB PO DAILY 08/02/23 Duloxetine HCl (Duloxetine HCl) 60 Mg Cap, 60 CAP PO BID 08/02/23 Empagliflozin (Jardiance) 10 Mg Tab, 1 TAB PO DAILY 08/02/23 Information Source: Patient Mode of Arrival: Ambulatory Past Medical History PAST MEDICAL HISTORY: Asthma, Depression, DM, GERD, High Lipids, HTN, Thyroid (hyperthyroidism ) Past Medical History (Other): Grave's disease, sleep apnea, diabetic neuropathy, fibromyalgia, chronic pain, obesity, sarcoidosis w/lung involvement, rhinitis, rotator cuff syndrome Surgical History: Denies all surgeries PAN PUSHER History: No Pertinent PAN PUSHER History Family History Family History: Reviewed,noncontributory to illness Social History Smoker: Cigarettes Alcohol: Denies ETOH Use Drugs: Denies Drug Use Lives In: Home All Other Systems: Reviewed and Negative (Comprehensive systems review obtained and negative except for what is stated in the HPI.) Physical Exam General Appearance: No Apparent Distress, Obese HEENT: Normal ENT Inspection, Pharynx Normal, TMs Normal Neck: Full Range of Motion, Non-Tender, Normal, Normal Inspection Respiratory: Chest Non-Tender, Lungs Clear, No Accessory Muscle Use, No Respiratory Distress, Normal Breath Sounds Cardiovascular: No Edema, No JVD, No Murmur, No Gallop, Normal Peripheral Pulses, Regular Rate/Rhythm Breast Exam: Deferred Gastrointestinal: No Organomegaly, Non Tender, No Pulsatile Mass, Normal Bowel Sounds, Soft Genitalia: Deferred Pelvic: Deferred Rectal: Deferred Extremities: No calf tenderness, Normal capillary refill, Normal inspection, Normal range of motion, Non-tender, No pedal edema Musculoskeletal : Apperance: Normal Neurologic: Alert, patient care secretary II-XII nml as Tested, No Motor Deficits, Normal Affect, Normal Mood, No Sensory Deficits Cerebellar Function: Normal Reflexes: Normal Skin: Dry, Normal Color, Warm Lymphatic: No Adenopathy Was a procedure done? Was a procedure done?: No Differential Dx Considerations may include: URI, viral syndrome, PNA, bronchitis, PA, PE, asthma exacerbation, reactive airway disease, ptx, pleural effusion, lung mass X-Ray, Labs, Meds, VS Vital Signs Date Time Temp Pulse Resp B/P (MAP) Pulse Ox O2 Delivery O2 Flow Rate FiO2 05/29/24 19:08 97.9 88 17 139/78 (98) 92 97.9 Lab Test 05/29/24 21:56 05/29/24 19:50 Range/Units Troponin I High Sensitivity Pending 3 L </=34 ng/L White Blood Count 8.3 4.4-10.8 10^3/uL Red Blood Count 5.38 H 4.0-5.20 10^6/uL Hemoglobin 15.2 12.2-16.2 g/dL Hematocrit 46.1 H 36.0-46.0 % Mean Corpuscular Volume 85.7 80.0-100.0 fL Mean Corpuscular Hemoglobin 28.2 28.0-32.0 pg Mean Corpuscular Hemoglobin Concent 32.9 32.0-36.0 g/dL Red Cell Distribution Width 15.1 H 11.8-14.3 % Platelet Count 246 140-450 10^3/uL Mean Platelet Volume 9.1 6.9-10.8 fL Neutrophils (%) (Auto) 37.0-80.0 % Lymphocytes (%) (Auto) 10.0-50.0 % Monocytes (%) (Auto) 0.0-12.0 % Eosinophils (%) (Auto) 0.0-7.0 % Basophils (%) (Auto) 0.0-2.0 % Neutrophils # (Auto) 1.6-8.6 10 ^3/uL Lymphocytes # (Auto) 0.4-5.4 10 ^3/uL Monocytes # (Auto) 0-1.3 10 ^3/uL Differential Total Cells Counted 100.0 100 Neutrophils % (Manual) 52 37.0-80.0 Band Neutrophils % (Manual) 1 Lymphocytes % (Manual) 25 10.0-50.0 Monocytes % (Manual) 4 0-12 Eosinophils % (Manual) 18 H 0-7 Basophils % (Manual) 0 0.0-2.0 Metamyelocytes % (manual) 0 Myelocytes % (Manual) 0 Promyelocytes % (Manual) 0 Blast Cells % (Manual) 0 Reactive Lymphocytes 0 Platelet Estimate Adequate Sodium Level 140 136-145 mmol/L Potassium Level 4.2 3.5-5.1 mmol/L Chloride Level 108 H 98-107 mmol/L Carbon Dioxide Level 25 20-31 mmol/L Anion Gap 7 5-15 Blood Urea Nitrogen 20 9-23 mg/dL Creatinine 0.95 0.550-1.02 mg/dL Glomerular Filtration Rate Calc 72 >90 mL/min BUN/Creatinine Ratio 21.1 H 10.0-20.0 Serum Glucose 174 H 74-106 mg/dL Calcium Level 9.9 8.7-10.4 mg/dL B-Type Natriuretic Peptide 43.01 0-100 pg/mL [place] [id number] Ph: [phone] DIAGNOSTIC IMAGING Diagnostic Imaging Report : [id number] Signed PATIENT: LUNA PAEZ ACCT: [id number] UNIT: [id number] : 1970 LOC: ER ROOM / BED: / AGE / SEX: 54 / F ADM STATUS: REG ER SERVICE 07 ORDERING PHYSICIAN: PRECIOUS HENRIQUEZ MD PROCEDURE(s): CXRP - CHEST PORTABLE REASON: sob ORDER NUMBER(s): [id number], ACCESSION NUMBER(s): [id number] CHEST RADIOGRAPH Indication: sob Technique: Single frontal view of the chest was obtained Comparison: XY CHEST XRAY 1 VIEW on DOS: 03/26/24, XY CHEST XRAY 1 VIEW on DOS: 08/03/23, CHEST PORTABLE on DOS: 10/19/21 FINDINGS: Lines and Tubes: None Lungs: No focal consolidation. Mild interstitial prominence which may be from underpenetration of the image.. Pleura: No effusion. No pneumothorax. Cardiomediastinal contours: Unremarkable Bones: No acute osseous abnormality. IMPRESSION: No acute cardiopulmonary disease. ATED BY: SHERLY READ DO DICTATED DATE/TIME: 05/29/242001 SIGNED BY: SHERLY READ DO SIGNED DATE/TIME: 05/29/242001 CC: Time of 1ST Reevaluation: 19:30 Reevaluation 1ST: Unchanged Time of 2ND Reevaluation: 22:28 Reevaluation 2ND: Improved Patient Education/Counseling: Diagnosis, Treatment, Prognosis, Need For Follow Up Family Education/Counseling: No Family Present Additional Information Previous medical encounters reviewed: March 26, 2024 encounter for URI The following tests were ordered, and results were reviewed by me: manual differential, troponin, BMP, BNP, CBC, CXR Additional Information was gathered from interviewing the following independent historians: n/a I reviewed and agreed with the following test results read by other providers: CXR I discussed treatment and results with medical personnel and: Patient pt still feels sob, but appears well. workup is unremarkable other than wheezes . pt will be admitted for new onset asthma with status asthmaticus Departure 1 Departure Time of Disposition: 22:29 Impression: Primary Impression: Asthma attack Qualified Codes: J45.41 - Moderate persistent asthma with (acute) exacerbation Disposition: ADMITTED INPATIENT Admit to: Tele Condition: Serious Discharged With: Self Critical Care Note Critical Care Time?: Yes (55 min-critical care time only) Critical care comment: Due to concerns for patients condition deteriorating, the care required my highest level of attention and readiness to intervene. I assessed the patient, reviewed the medical records, ordered the appropriate tests and treatments, then reassessed for results and responsiveness. I communicated with medical personnel and consultants and formulated a plan of care. Total critical care time excludes any procedures Stability Stability form required: No Heart Score Heart Score: Heart Score Response (Comments) Value History Slightly Suspicious 0 EKG Normal 0 Age 45-64 1 Risk Factors >3 or Hx ASHD 2 Troponin Normal limit 0 Total 3 I personally scribed for PRECIOUS HENRIQUEZ MD ([email or web address]) on 05/29/24 at 21:00. Electronically submitted by Adonis Hemphill ([email or web address]). PRECIOUS HENRIQUEZ MD May 29, 2024 21:00
[2024-05-29 22:20] LABS: Band Neutrophils % (manual) 1; Eosinophils % (manual) 18 (0-7); Lymphocytes % (manual) 25 (10.0-50.0); Monocytes % (manual) 4 (0-12); Platelet Estimate Adequate
[2024-05-30] VITALS (9 sets, daily range): BP systolic 112–121; BP diastolic 52–75; PULSE 73–107; RESP 14–19; TEMP 97.9–98.1; O2SAT 91–100
[2024-05-30] MEDS: InsuLIN REG 1unit/0.01ml Soln (100units/ml) SC ONE (00:45)
[2024-05-30] MEDS: SODIUM CHLORIDE 0.9% 1,000 ML IV ONE (02:28)
[2024-05-30] MEDS: ACETAMINOPHEN 325 MG TAB PO ONE (04:50)
[2024-05-30] MEDS ORDERED: MORPHINE SULFATE INJ 2 MG/ml SYRG IV PRN (08:00)
[2024-05-30] MEDS ORDERED: DOCUSATE SOD 100 MG CAP PO PRN (08:00)
[2024-05-30] MEDS ORDERED: DEXTROSE (50%) 50ML SYRG IV PRN (08:00)
[2024-05-30] MEDS ORDERED: TIZANIDINE HYDROCHLORIDE PO PRN (08:00)
[2024-05-30] MEDS ORDERED: ONDANSETRON HCL 4 MG/2 ML VIAL IV PRN (08:00)
[2024-05-30] MEDS ORDERED: NITROGLYCERIN 0.4 MG SL TAB SL PRN (08:00)
[2024-05-30] MEDS ORDERED: CETI-120 PO (08:01)
[2024-05-30] MEDS ORDERED: OMEP1CAP70 PO (08:01)
--- NOTE | 2024-05-30 08:18 | DVHHP2 ---
History of Present Illness Reason for Visit: Shortness of breath History of Present Illness Olena Szymanski is a 54-year-old female with past medical history of hypertension, hyperlipidemia, asthma, diabetes, GERD, depression, fibromyalgia, obesity, chronic pain, and sleep apnea who came in with complaints of shortness of breath. Patient states she had walking pneumonia in the beginning of March. She was told the cough could last for 4-6 weeks. She was getting better the beginning of April, then she was around her nieces and nephews about 1.5 weeks ago and her cough has worsened. She states te cough has been becoming progressively worse over the last week. She went to urgent care yesterday to get some cough syrup and was told to go to the ER due to low oxygenation. Patient was on 2L NC on assessment with O2 sat 91%. Cardiovascular: HTN, hyperipidemia Pulmonary: Asthma GI: GERD Psych: Anxiety, Depression, Other (fibromyalgia) Musculoskeletal: Chronic low back pain Endocrine: Diabetes, Hyperthyroidism Past Surgical History: Cholecystectomy, (x 1), Other (nasal polyps, right knee), Tonsillectomy Smoke: <1 pack per day ALCOHOL: rare Drugs: None Lives: with Family Domestic Violence: Neg Review of Systems Constitutional: No: Fever, Chills, Sweats, Weakness, Malaise, Other Eyes: No: Pain, Vision change, Conjunctivae inflammation, Eyelid inflammation, Other, Redness ENT: No: Ear pain, Ear discharge, Nose pain, Nose discharge, Nose congestion, Mouth pain, Mouth swelling, Throat pain, Throat swelling, Other Respiratory: Cough, Shortness of breath, SOB with excertion, Wheezing; No: Dry, Hemoptysis, Pleuritic Pain, Sputum, Wheezing, Other Cardiovascular: No: Chest Pain, Palpitations, Orthopnea, Paroxysmal Noc. Dyspnea, Edema, Lt Headedness, Other Gastrointestinal: No: Nausea, Vomiting, Abdominal Pain, Diarrhea, Constipation, Melena, Hematochezia, Other Genitourinary: No Dysuria, No Frequency, No Incontinence, No Hematuria, No Retention, No Other Musculoskeletal: No: other, neck pain, shoulder pain, arm pain, back pain, hand pain, leg pain, foot pain Skin: No: Rash, Lesions, Jaundice, Bruising, Other Neurological: No: Weakness, Numbness, Incoordination, Change in speech, Confusion, Seizures, Other Allergies: Coded Allergies: Cephalexin (Verified Allergy, Severe, 08/02/23) Hydroxychloroquine (Verified Allergy, Unknown, 06/06/20) Medications Current Medications Medications Dose Ordered Sig/Devan Route Start Time Stop Time Status Last Admin Dose Admin Sodium Chloride 10 ml Q8HR IV 05/30/24 14:00 UNV Ondansetron HCl 4 mg Q4HP PRN IV 05/30/24 08:00 UNV Docusate Sodium 100 mg BIDPRN PRN PO 05/30/24 08:00 UNV Acetaminophen 650 mg Q6HP PRN PO 05/30/24 08:00 UNV Nitroglycerin 0.4 mg Q5MINP PRN SL 05/30/24 08:00 UNV Morphine Sulfate 2 mg Q30M PRN IV 05/30/24 08:00 UNV Diagnostic Test (Pha) 1 strip ACHS 05/30/24 11:30 UNV Insulin Human Regular HS SC 05/30/24 22:00 UNV Insulin Human Regular AC SC 05/30/24 11:30 UNV Dextrose 50 ml UD PRN IV 05/30/24 08:00 UNV Ipratropium [place] 0.5 mg Q6HWA NEB 05/30/24 12:00 UNV Albuterol 2.5 mg Q6HWA NEB 05/30/24 12:00 UNV Methylprednisolone Sodium Succinate 40 mg BID IV 05/30/24 22:00 UNV Azithromycin 250 ml @ 125 mls/hr DAILY IV 05/30/24 10:00 UNV Ceftriaxone Sodium 50 ml @ 100 mls/hr DAILY@09 IV 05/30/24 09:00 UNV Empaglifozin 10 mg DAILY PO 05/30/24 10:00 UNV Trazodone HCl 50 mg HS PO 05/30/24 22:00 UNV Patient Own Medication 1 tab DAILY PO 05/30/24 10:00 UNV Patient Own Medication 60 cap BID PO 05/30/24 10:00 UNV Patient Own Medication 1 tab DAILY PO 05/30/24 10:00 UNV Patient Own Medication 1 tab DAILY PO 05/30/24 10:00 UNV Patient Own Medication 1 tab TID PO 05/30/24 14:00 UNV Patient Own Medication 1 cap QID PRN PO 05/30/24 08:00 UNV Patient Own Medication 40 mg DAILY PO 05/30/24 10:00 UNV Exam Vital Signs Vital Signs Date Time Temp Pulse Resp B/P (MAP) Pulse Ox O2 Delivery O2 Flow Rate FiO2 05/30/24 07:41 91 Nasal Cannula* 2 28 05/30/24 07:15 73 18 05/30/24 07:15 97.9 111/64 (80) 97.9 General Appearance: Alert, Oriented X3, Cooperative, mild distress HEENT: Atraumatic, PERRLA Respiratory: Other (Diminished breath sounds, bilateral wheezing) Cardiovascular: Regular rate, Normal S1, Normal S2, No murmurs Abdominal: Normal bowel sounds, Soft, No tenderness Extremities: No clubbing, No cyanosis, No edema, Normal pulses, No tenderness/swelling Skin: No rashes, No breakdown, No significant lesion Neuro: Normal gait, Normal speech, Strength at 5/5 X4 ext Psych/Mental Status: Mental status NL, Mood NL Labs/Xrays Labs Test 05/30/24 06:11 05/29/24 21:56 05/29/24 19:50 Range/Units POC Glucose 289 H 70-106 mg/dl Troponin I High Sensitivity 3 L </=34 ng/L White Blood Count 8.3 4.4-10.8 10^3/uL Red Blood Count 5.38 H 4.0-5.20 10^6/uL Hemoglobin 15.2 12.2-16.2 g/dL Hematocrit 46.1 H 36.0-46.0 % Mean Corpuscular Volume 85.7 80.0-100.0 fL Mean Corpuscular Hemoglobin 28.2 28.0-32.0 pg Mean Corpuscular Hemoglobin Concent 32.9 32.0-36.0 g/dL Red Cell Distribution Width 15.1 H 11.8-14.3 % Platelet Count 246 140-450 10^3/uL Mean Platelet Volume 9.1 6.9-10.8 fL Neutrophils (%) (Auto) 37.0-80.0 % Lymphocytes (%) (Auto) 10.0-50.0 % Monocytes (%) (Auto) 0.0-12.0 % Eosinophils (%) (Auto) 0.0-7.0 % Basophils (%) (Auto) 0.0-2.0 % Neutrophils # (Auto) 1.6-8.6 10 ^3/uL Lymphocytes # (Auto) 0.4-5.4 10 ^3/uL Monocytes # (Auto) 0-1.3 10 ^3/uL Differential Total Cells Counted 100.0 100 Neutrophils % (Manual) 52 37.0-80.0 Band Neutrophils % (Manual) 1 Lymphocytes % (Manual) 25 10.0-50.0 Monocytes % (Manual) 4 0-12 Eosinophils % (Manual) 18 H 0-7 Basophils % (Manual) 0 0.0-2.0 Metamyelocytes % (manual) 0 Myelocytes % (Manual) 0 Promyelocytes % (Manual) 0 Blast Cells % (Manual) 0 Reactive Lymphocytes 0 Platelet Estimate Adequate Sodium Level 140 136-145 mmol/L Potassium Level 4.2 3.5-5.1 mmol/L Chloride Level 108 H 98-107 mmol/L Carbon Dioxide Level 25 20-31 mmol/L Anion Gap 7 5-15 Blood Urea Nitrogen 20 9-23 mg/dL Creatinine 0.95 0.550-1.02 mg/dL Glomerular Filtration Rate Calc 72 >90 mL/min BUN/Creatinine Ratio 21.1 H 10.0-20.0 Serum Glucose 174 H 74-106 mg/dL Calcium Level 9.9 8.7-10.4 mg/dL B-Type Natriuretic Peptide 43.01 0-100 pg/mL CHEST RADIOGRAPH FINDINGS: Lines and Tubes: None Lungs: No focal consolidation. Mild interstitial prominence which may be from underpenetration of the image.. Pleura: No effusion. No pneumothorax. Cardiomediastinal contours: Unremarkable Bones: No acute osseous abnormality. IMPRESSION: No acute cardiopulmonary disease. Assessment/Plan Assessment/Plan Assessment: Acute severe exacerbation of asthma, Hypoxemia, Possible pneumonia, Hyperglycemia, GERD, Diabetes, Hyperlipidemia, Hypertension, Plan: Admit to Tele, IV steroids, IV antibiotics, Chest X-ray tomorrow morning, Supplemental oxygen as needed, Breathing treatments, A1c, Accu checks Q AC&HS with sliding scale, Home medications reconciled, Plan discussed with: Patient My Orders Orders - LASHONDA CARREON Procedure Category Date Status Time Admit ADMIT 05/30/24 Transmitted 07:46 Code Status CODE 05/30/24 Transmitted 07:46 Sodium Chloride Lock PHA 05/30/24 Logged (Saline Lock Ns) 14:00 Ondansetron Hcl PHA 05/30/24 Logged (Zofran) 08:00 Docusate Sodium PHA 05/30/24 Logged Capsule (Colace 08:00 Complete Blood Count LAB 05/31/24 Verified 04:00 Comprehensive LAB 05/31/24 Verified Metabolic Panel 04:00 Cardiac DIET 05/30/24 Transmitted Diet-2gna,Lofat,Lochol Breakfast Condition: Serious [facility] 05/30/24 In Process 07:46 Acetaminophen Tablet PHA 05/30/24 Logged (Tylenol Tablet) 08:00 Nitroglycerin [facility] 05/30/24 Logged Sublingual (Ntrostat 08:00 Morphine Sulfate PHA 05/30/24 Logged Injection 08:00 Stat Ekg For Chest FR[facility]ISCO 05/30/24 In Process Pain 07:46 Notify Of Changes [facility] 05/30/24 In Process From Base 07:46 Baggage Inspector For [facility] 05/30/24 In Process 24 Hours 07:46 Emergency Dysrhythmia [facility] 05/30/24 In Process Protocol 07:46 Rhythm Strips Once [facility] 05/30/24 In Process Every Shift 07:46 Oxygen By Nasal RT 05/30/24 Transmitted Cannula 07:46 Glucose Blood [facility] 05/30/24 Logged (Accu-Chek Comfort 11:30 Insulin R (Human) PHA 05/30/24 Logged (Insulin R) 22:00 Insulin R (Human) PHA 05/30/24 Logged (Insulin R) 11:30 Dextrose 50% Syringe PHA 05/30/24 Logged 08:00 Ipratropium Medneb PHA 05/30/24 Logged (Atrovent Medneb) 12:00 Albuterol Medneb PHA 05/30/24 Logged (Ventolin Medneb) 12:00 Methylprednisolone PHA 05/30/24 Logged Sod Succ (Solu Medrol 22:00 Methylprednisolone PHA 05/30/24 Logged Sod Succ (Solu Medrol 08:00 Azithromycin 500mg/ PHA 05/30/24 Logged 250ml (Zithromax 50 10:00 Ceftriaxone 1gm/50ml PHA 05/30/24 Logged D5w (Rocephin) 09:00 Chest Portable XY 05/31/24 Logged 06:00 Empagliflozin PHA 05/30/24 Logged (Jardiance) 10:00 Trazodone Hcl PHA 05/30/24 Logged (Desyrel) 22:00 (Nf) Atorvastatin PHA 05/30/24 Logged Calcium 10:00 (Nf) Duloxetine Hcl PHA 05/30/24 Logged 10:00 (Nf) Lisinopril PHA 05/30/24 Logged 10:00 (Nf) Meloxicam PHA 05/30/24 Logged 10:00 (Nf) Oxycodone Hcl PHA 05/30/24 Logged (Oxycodone Hydrochlor 14:00 (Nf) Tizanidine PHA 05/30/24 Logged Hydrochloride 08:00 (Nf) Omeprazole PHA 05/30/24 Logged (Omeprazole Dr) 10:00 Date of Service: May 30, 2024 Billing Provider: LASHONDA CARREON Common Visit Codes: [id number] INP/OBS CARE (MOD) LASHONDA CARREON May 30, 2024 08:18
[2024-05-30] MEDS: methylPREDNISolone SOD SUCC 125 MG/2 ML VL IV ONE (08:30)
[2024-05-30] MEDS: cefTRIAXone 1GM/50ML D5W 50 ML IV SCH (09:22)
[2024-05-30] MEDS: Meloxicam 15MG TAB PO SCH (10:00)
[2024-05-30] MEDS: AZITHROMYCIN 500MG/ 250ML 250 ML IV SCH (10:39)
[2024-05-30] MEDS: LISINOPRIL 5 MG TAB PO SCH (10:40)
[2024-05-30] MEDS: EMPAGLIFLOZIN 10 MG TAB PO SCH (10:41)
[2024-05-30] MEDS: PANTOPRAZOLE 40 MG TAB PO SCH (10:41)
[2024-05-30] MEDS: DULoxetine HCL 30 MG CAP PO SCH (10:41)
[2024-05-30] MEDS: ACCU-CHEK COMFORT CURVE STRIP VI SCH (12:16)
[2024-05-30] MEDS: InsuLIN REG 1unit/0.01ml Soln (100units/ml) SC SCH ×2 (12:16→23:07)
[2024-05-30] MEDS: IPRATROPIUM BROM 0.5 MG/2.5ML INH SOL NEB SCH (12:35)
[2024-05-30] MEDS: ALBUTEROL SULF 2.5 MG/0.5ML(0.5%) NEB SOLN NEB SCH (12:35)
[2024-05-30] MEDS: oxyCODONE ER 10 MG TAB PO ONE (13:43)
[2024-05-30] MEDS: SODIUM CHLOR 0.9% PF (SALINE LOCK) 10ML VIAL/SYR IV SCH (14:13)
--- NOTE | 2024-05-30 15:27 | DVHPN2 ---
Subjective 05/30 - shortness of breath this mild and improving. Exam with diffuse wheezing expiratory.. She was coughing a lot. We will give some antitussive medications. Continuing treatment for pneumonia. Use finances are high slightly allergic/asthma related and we will need steroids and nebs. Continue treatment. Reviewed: H&P Changes from previous H/P or p: No Changes General: Per HPI Objective Vitals Vital Signs Date Time Temp Pulse Resp B/P (MAP) Pulse Ox O2 Delivery O2 Flow Rate FiO2 05/30/24 12:40 82 16 100 05/30/24 12:30 Nasal Cannula* 3 32 05/30/24 12:00 98.1 121/52 (75) 98.1 Intake/Output Intake and Output 05/30/24 07:00 Intake Total 1000 ml Balance 1000 ml Intake IV Total 1000 ml Exam GEN: Healthy appearing, well-developed, mild distress HEENT: NC/AT; MMM. CV: RRR, no m/r/g. LUNGS: Diffuse wheezing ABD: Soft, NT/ND, NBS, no masses or organomegaly. EXT: skin Warm, well perfused. no rashes. No clubbing, cyanosis, or edema. NEURO: Ambulating with no limitations. No focal deficits. Medications Current Medications Medications Dose Ordered Sig/Devan Route Start Time Stop Time Status Last Admin Dose Admin Sodium Chloride 10 ml Q8HR IV 05/30/24 14:00 05/30/24 14:13 10 ML Ondansetron HCl 4 mg Q4HP PRN IV 05/30/24 08:00 Docusate Sodium 100 mg BIDPRN PRN PO 05/30/24 08:00 Acetaminophen 650 mg Q6HP PRN PO 05/30/24 08:00 Nitroglycerin 0.4 mg Q5MINP PRN SL 05/30/24 08:00 Morphine Sulfate 2 mg Q30M PRN IV 05/30/24 08:00 Diagnostic Test (Pha) 1 strip ACHS 05/30/24 11:30 05/30/24 12:16 1 STRIP Insulin Human Regular HS SC 05/30/24 22:00 Insulin Human Regular AC SC 05/30/24 11:30 05/30/24 12:16 12 UNITS Dextrose 50 ml UD PRN IV 05/30/24 08:00 Ipratropium [place] 0.5 mg Q6HWA NEB 05/30/24 12:00 05/30/24 12:35 0.5 MG Albuterol 2.5 mg Q6HWA NEB 05/30/24 12:00 05/30/24 12:35 2.5 MG Methylprednisolone Sodium Succinate 40 mg BID IV 05/30/24 22:00 Azithromycin 250 ml @ 125 mls/hr DAILY IV 05/30/24 10:00 05/30/24 10:39 125 MLS/HR Ceftriaxone Sodium 50 ml @ 100 mls/hr DAILY@09 IV 05/30/24 09:00 05/30/24 09:22 100 MLS/HR Empaglifozin 10 mg DAILY PO 05/30/24 10:00 05/30/24 10:41 10 MG Trazodone HCl 50 mg HS PO 05/30/24 22:00 Atorvastatin Calcium 10 mg HS PO 05/30/24 22:00 Duloxetine HCl 60 mg BID PO 05/30/24 10:00 05/30/24 10:41 60 MG Lisinopril 2.5 mg DAILY PO 05/30/24 10:00 05/30/24 10:40 2.5 MG Patient Own Medication 1 tab DAILY PO 05/30/24 10:00 Oxycodone HCl 10 mg Q8HR PO 05/30/24 22:00 Future hold Patient Own Medication 1 cap QID PRN PO 05/30/24 08:00 Pantoprazole Sodium 40 mg DAILY@0700 PO 05/30/24 10:00 05/30/24 10:41 40 MG Laboratory Results Laboratory Tests 05/29/24 19:50 Chemistry Test 05/29/24 19:50 Calcium Level 9.9 mg/dL (8.7-10.4) Cardiac Markers Test 05/29/24 19:50 B-Type Natriuretic Peptide 43.01 pg/mL (0-100) Labs and/or images reviewed: Labs reviewed by me, Image(s) reviewed by me Assessment/Plan Assessment/Plan 05/30 - shortness of breath this mild and improving. Exam with diffuse wheezing expiratory.. She was coughing a lot. We will give some antitussive medications. Continuing treatment for pneumonia. Use finances are high slightly allergic/asthma related and we will need steroids and nebs. Continue treatment. Acute severe asthma exacerbation Acute hypoxic respiratory failure due to above Community-acquired pneumonia, Gram-negative/Gram-positive possible Bronchitis possible Chronic tobacco dependence (2 cigarettes per day) History of asthma Hypertension Hyperlipidemia Diabetes GERD Depression Fibromyalgia Obesity GAMA IV steroids Solu-Medrol b.i.d. Duo nebs q.6 H while awake Ceftriaxone/azithromycin IV antibiotics Diabetic diet Oxygen maintain saturations > 90% Avoid tobacco abuse, nicotine patch p.r.n. offered Continue home medications Hold diabetes p.o. medications, employ mild SSI a.c. HS Diabetic diet DVT Lovenox subQ GI prophylaxis tolerating p.o. Med surge Full code Plan discussed with: Patient Date of Service: May 30, 2024 Billing Provider: ALBARO OCONNELL MD Common Visit Codes: [id number] INP/OBS CARE(HIGH) ALBARO OCONNELL MD May 30, 2024 15:27
[2024-05-30] MEDS: ACETAMINOPHEN 325 MG TAB PO PRN (20:40)
[2024-05-30] MEDS: ATORVASTATIN 20 MG TAB PO SCH (22:48)
[2024-05-30] MEDS: traZODone HCL 50 MG TAB PO SCH (22:48)
[2024-05-30] MEDS: methylPREDNISolone SOD SUCC 40 MG/ML VL IV SCH (22:49)
[2024-05-30] MEDS: oxyCODONE ER 10 MG TAB PO SCH (23:51)
[2024-05-31] VITALS (15 sets, daily range): BP systolic 99–149; BP diastolic 47–90; PULSE 67–91; RESP 16–19; TEMP 97.5–98.2; O2SAT 92–100
[2024-05-31] MEDS ORDERED: INSUINJ3 SC (04:56)
[2024-05-31] MEDS ORDERED: SEMA2INJ3 SC (04:59)
--- NOTE | 2024-05-31 07:12 | DVH ---
EXAM: XR Chest, 1 View CLINICAL INDICATION: SOB TECHNIQUE: Frontal view of the chest. COMPARISON: XY CHEST PORTABLE on DOS: 05/29/24, XY CHEST XRAY 1 VIEW on DOS: 03/26/24, XY CHEST XRAY 1 VIEW on DOS: 08/03/23, CHEST PORTABLE on DOS: 10/19/21, CHEST PORTABLE on DOS: 06/06/20 FINDINGS: LUNGS AND PLEURAL SPACES: Pulmonary venous congestion. No consolidation. No pneumothorax. HEART: Unremarkable. No cardiomegaly. MEDIASTINUM: Unremarkable. Normal mediastinal contour. BONES/JOINTS: Unremarkable. No acute fracture. OTHER FINDINGS: . IMPRESSION: Pulmonary venous congestion.
[2024-05-31 07:51] LABS: Alanine Aminotransferase 14 U/L (7-40); Anion Gap 9 (5-15); Carbon Dioxide 25 mmol/L (20-31); Chloride 103 mmol/L (98-107); Potassium 4.8 mmol/L (3.5-5.1); Sodium 137 mmol/L (136-145); Total Protein 7.7 g/dL (5.7-8.2)
[2024-05-31 07:52] LABS: Basophils # (auto) 0 10 ^3/uL (0-0.2); Basophils % (auto) 0.1 % (0.0-2.0); Bilirubin, Total 0.4 mg/dL (0.2-1.0); Eosinophils # (auto) 0 10 ^3/uL (0-0.8); Eosinophils % (auto) 0.1 % (0.0-7.0); Hematocrit 40.2 % (36.0-46.0); Hemoglobin 13.4 g/dL (12.2-16.2); Lymphocytes # (auto) 0.9 10 ^3/uL (0.4-5.4); Lymphocytes % (auto) 7.2 % (10.0-50.0); Mean Corpuscular Hemoglobin 28.7 pg (28.0-32.0); Mean Corpuscular Hgb Conc. 33.4 g/dL (32.0-36.0); Monocytes # (auto) 0.3 10 ^3/uL (0-1.3); Monocytes % (auto) 2.1 % (0.0-12.0); Neutrophils % (auto) 90.5 % (37.0-80.0); Platelet Count (auto) 229 10^3/uL (140-450); Red Blood Cells 4.68 10^6/uL (4.0-5.20); Red Cell Distribution Width 14.8 % (11.8-14.3); White Blood Cell 12.2 10^3/uL (4.4-10.8)
[2024-05-31 07:53] LABS: Alkaline Phosphatase 127 U/L (46-116); Aspartate Aminotransferase 11 U/L (13-40); Blood Urea Nitrogen 28 mg/dL (9-23); Calcium 10.4 mg/dL (8.7-10.4); Glucose 198 mg/dL (74-106)
[2024-05-31] MEDS ORDERED: guaiFENesin-DM 100/10mg/5ml SYR PO PRN (09:45)
--- NOTE | 2024-05-31 12:33 | ECG ---
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
--- NOTE | 2024-05-31 16:40 | DVHPN2 ---
Subjective Update 05/31 05/30 - shortness of breath this mild and improving. Exam with diffuse wheezing expiratory.. She was coughing a lot. We will give some antitussive medications. Continuing treatment for pneumonia. Use finances are high slightly allergic/asthma related and we will need steroids and nebs. Continue treatment. 05/31 - patient mild improvement. Still having severe cough and some chest tightness. We will continue IV antibiotics, p.r.n. antitussives and IV steroids with nebs. Reviewed: H&P Changes from previous H/P or p: No Changes General: Per HPI Objective Vitals Vital Signs Date Time Temp Pulse Resp B/P (MAP) Pulse Ox O2 Delivery O2 Flow Rate FiO2 05/31/24 16:30 97.7 85 18 149/71 (97) 93 97.7 05/31/24 11:43 Room Air 0.0 05/31/24 11:43 21 Intake/Output Intake and Output 05/31/24 07:00 Intake Total 450 ml Balance 450 ml Intake Oral 150 ml IV Total 300 ml # Voids 1 Exam GEN: Healthy appearing, well-developed, mild distress HEENT: NC/AT; MMM. CV: RRR, no m/r/g. LUNGS: Diffuse wheezing ABD: Soft, NT/ND, NBS, no masses or organomegaly. EXT: skin Warm, well perfused. no rashes. No clubbing, cyanosis, or edema. NEURO: Ambulating with no limitations. No focal deficits. Medications Current Medications Medications Dose Ordered Sig/Devan Route Start Time Stop Time Status Last Admin Dose Admin Sodium Chloride 10 ml Q8HR IV 05/30/24 14:00 05/31/24 15:33 10 ML Ondansetron HCl 4 mg Q4HP PRN IV 05/30/24 08:00 Docusate Sodium 100 mg BIDPRN PRN PO 05/30/24 08:00 Acetaminophen 650 mg Q6HP PRN PO 05/30/24 08:00 05/30/24 20:40 650 MG Nitroglycerin 0.4 mg Q5MINP PRN SL 05/30/24 08:00 Morphine Sulfate 2 mg Q30M PRN IV 05/30/24 08:00 Diagnostic Test (Pha) 1 strip ACHS 05/30/24 11:30 05/31/24 15:33 1 STRIP Insulin Human Regular HS SC 05/30/24 22:00 05/30/24 23:07 4 UNITS Insulin Human Regular AC SC 05/30/24 11:30 05/31/24 11:30 9 UNITS Dextrose 50 ml UD PRN IV 05/30/24 08:00 Ipratropium [place] 0.5 mg Q6HWA NEB 05/30/24 12:00 05/31/24 11:43 0.5 MG Albuterol 2.5 mg Q6HWA NEB 05/30/24 12:00 05/31/24 11:43 2.5 MG Methylprednisolone Sodium Succinate 40 mg BID IV 05/30/24 22:00 05/31/24 09:30 40 MG Azithromycin 250 ml @ 125 mls/hr DAILY IV 05/30/24 10:00 05/31/24 10:31 125 MLS/HR Ceftriaxone Sodium 50 ml @ 100 mls/hr DAILY@09 IV 05/30/24 09:00 05/31/24 09:21 100 MLS/HR Empaglifozin 10 mg DAILY PO 05/30/24 10:00 05/31/24 09:30 10 MG Trazodone HCl 50 mg HS PO 05/30/24 22:00 05/30/24 22:48 50 MG Atorvastatin Calcium 10 mg HS PO 05/30/24 22:00 05/30/24 22:48 10 MG Duloxetine HCl 60 mg BID PO 05/30/24 10:00 05/31/24 09:30 60 MG Lisinopril 2.5 mg DAILY PO 05/30/24 10:00 05/31/24 09:32 2.5 MG Patient Own Medication 1 tab DAILY PO 05/30/24 10:00 Oxycodone HCl 10 mg Q8HR PO 05/30/24 22:00 05/31/24 15:34 10 MG Patient Own Medication 1 cap QID PRN PO 05/30/24 08:00 Pantoprazole Sodium 40 mg DAILY@0700 PO 05/30/24 10:00 05/31/24 06:13 40 MG Guaifenesin/ Dextromethorphan 10 ml Q4HP PRN PO 05/31/24 09:45 Laboratory Results Laboratory Tests 05/31/24 06:33 Chemistry Test 05/31/24 06:33 Albumin 5.0 g/dL (3.2-4.8) H Calcium Level 10.4 mg/dL (8.7-10.4) Total Protein 7.7 g/dL (5.7-8.2) LFT Test 05/31/24 06:33 Alanine Aminotransferase (ALT) 14 U/L (7-40) Alkaline Phosphatase 127 U/L (46-116) H Aspartate Amino Transferase (AST) 11 U/L (13-40) L Total Bilirubin 0.4 mg/dL (0.2-1.0) HgA1c, TSH Test 05/31/24 06:33 Hemoglobin A1c 6.9 % A1C (<5.7) H Microbiology Microbiology Date/Time Source Procedure Growth Status 05/31/24 01:35 Nose MRSA Screen - Final Methicillin Resistant S.aureus Complete Labs and/or images reviewed: Labs reviewed by me, Image(s) reviewed by me Assessment/Plan Assessment/Plan 05/31 - patient mild improvement. Still having severe cough and some chest tightness. We will continue IV antibiotics, p.r.n. antitussives and IV steroids with nebs. Diagnosis: Acute severe asthma exacerbation Acute hypoxic respiratory failure due to above Community-acquired pneumonia, Gram-negative/Gram-positive possible. Nares MRSA positive Bronchitis possible Chronic tobacco dependence (2 cigarettes per day) History of asthma Hypertension Hyperlipidemia Diabetes GERD Depression Fibromyalgia Obesity GAMA Plan: IV steroids Solu-Medrol b.i.d. Nares Bactroban ointment b.i.d. for 5 days Duo nebs q.6 H while awake Escalate antibiotics to ceftriaxone/doxycycline given MRSA positive nares. Prior given Ceftriaxone/azithromycin IV antibiotics Diabetic diet Oxygen maintain saturations > 90% Avoid tobacco abuse, nicotine patch p.r.n. offered Continue home medications Hold diabetes p.o. medications, employ mild SSI a.c. HS Diabetic diet DVT Lovenox subQ GI prophylaxis tolerating p.o. Med surge Full code Plan discussed with: Patient My Orders Orders - ALBARO OCONNELL MD Procedure Category Date Status Time * Marketing Support Assistant CONS 05/31/24 Transmitted Consult * Wound Consult CONS 05/31/24 Transmitted Guaifenesin-Dextromet PHA 05/31/24 In Process Liquid (Robitussin 09:45 Bipap/Cpap For Sleep RT 05/31/24 Logged Apnea 10:12 Date of Service: May 31, 2024 Billing Provider: ALBARO OCONNELL MD Common Visit Codes: [id number] INP/OBS CARE(HIGH) ALBARO OCONNELL MD May 31, 2024 16:40
[2024-05-31] MEDS: DOXYCYCLINE 100MG/100ML 100 ML IV SCH (17:46)
[2024-05-31] MEDS: SODIUM CHLORIDE 0.9% 1,000 ML IV ONE (18:17)
[2024-05-31] MEDS: MUPIROCIN 2% OINT 15gm or 22gm FOR MRSA NARES EACHNOSTRI SCH (22:32)
[2024-06-01] VITALS (14 sets, daily range): BP systolic 125–141; BP diastolic 63–78; PULSE 63–92; RESP 15–20; TEMP 97.4–98.4; O2SAT 91–100
[2024-06-01 06:51] LABS: Urine Bacteria None Seen /hpf (None Seen)
[2024-06-01 07:00] LABS: Urine Blood Negative /uL (Negative); Urine Clarity Clear (Clear); Urine Color Colorless (Yellow); Urine Protein, UAD Negative (Negative); Urine Specific Gravity 1.019 (1.001-1.035); Urine Squamous Epithelial Cell FEW /hpf (<5); Urine Urobilinogen Normal (Negative)
--- NOTE | 2024-06-01 12:26 | DVHPN2 ---
Subjective Update 06/01 05/30 - shortness of breath this mild and improving. Exam with diffuse wheezing expiratory.. She was coughing a lot. We will give some antitussive medications. Continuing treatment for pneumonia. Use finances are high slightly allergic/asthma related and we will need steroids and nebs. Continue treatment. 05/31 - patient mild improvement. Still having severe cough and some chest tightness. We will continue IV antibiotics, p.r.n. antitussives and IV steroids with nebs. 06/01 - improving. wheezing much improved. need few more days tx iv abx and steroids. nares mrsa,. will gives bactroban and change azithro to doxy. likely 2 more days tx then outpaitnet abx after sat-sun. Reviewed: H&P Changes from previous H/P or p: No Changes General: Per HPI Objective Vitals Vital Signs Date Time Temp Pulse Resp B/P (MAP) Pulse Ox O2 Delivery O2 Flow Rate FiO2 06/01/24 12:04 67 18 100 06/01/24 11:57 Room Air* 0 21 06/01/24 09:11 125/66 06/01/24 09:00 98.1 98.1 Intake/Output Intake and Output 06/01/24 07:00 Intake Total 2614 ml Balance 2614 ml Intake Oral 1364 ml IV Total 1250 ml # Voids 10 Exam GEN: Healthy appearing, well-developed, mild distress HEENT: NC/AT; MMM. CV: RRR, no m/r/g. LUNGS: Diffuse wheezing ABD: Soft, NT/ND, NBS, no masses or organomegaly. EXT: skin Warm, well perfused. no rashes. No clubbing, cyanosis, or edema. NEURO: Ambulating with no limitations. No focal deficits. Medications Current Medications Medications Dose Ordered Sig/Devan Route Start Time Stop Time Status Last Admin Dose Admin Sodium Chloride 10 ml Q8HR IV 05/30/24 14:00 06/01/24 05:46 10 ML Ondansetron HCl 4 mg Q4HP PRN IV 05/30/24 08:00 Docusate Sodium 100 mg BIDPRN PRN PO 05/30/24 08:00 Acetaminophen 650 mg Q6HP PRN PO 05/30/24 08:00 05/30/24 20:40 650 MG Nitroglycerin 0.4 mg Q5MINP PRN SL 05/30/24 08:00 Morphine Sulfate 2 mg Q30M PRN IV 05/30/24 08:00 Diagnostic Test (Pha) 1 strip ACHS 05/30/24 11:30 06/01/24 11:45 1 STRIP Insulin Human Regular HS SC 05/30/24 22:00 05/31/24 22:40 6 UNITS Insulin Human Regular AC SC 05/30/24 11:30 06/01/24 11:46 9 UNITS Dextrose 50 ml UD PRN IV 05/30/24 08:00 Ipratropium [place] 0.5 mg Q6HWA NEB 05/30/24 12:00 06/01/24 11:57 0.5 MG Albuterol 2.5 mg Q6HWA NEB 05/30/24 12:00 06/01/24 11:57 2.5 MG Methylprednisolone Sodium Succinate 40 mg BID IV 05/30/24 22:00 06/01/24 09:09 40 MG Ceftriaxone Sodium 50 ml @ 100 mls/hr DAILY@09 IV 05/30/24 09:00 06/01/24 09:11 100 MLS/HR Empaglifozin 10 mg DAILY PO 05/30/24 10:00 06/01/24 09:10 10 MG Trazodone HCl 50 mg HS PO 05/30/24 22:00 05/31/24 21:13 50 MG Atorvastatin Calcium 10 mg HS PO 05/30/24 22:00 05/31/24 21:12 10 MG Duloxetine HCl 60 mg BID PO 05/30/24 10:00 06/01/24 09:31 60 MG Lisinopril 2.5 mg DAILY PO 05/30/24 10:00 06/01/24 09:11 2.5 MG Patient Own Medication 1 tab DAILY PO 05/30/24 10:00 Oxycodone HCl 10 mg Q8HR PO 05/30/24 22:00 06/01/24 05:45 10 MG Patient Own Medication 1 cap QID PRN PO 05/30/24 08:00 Pantoprazole Sodium 40 mg DAILY@0700 PO 05/30/24 10:00 06/01/24 06:26 40 MG Guaifenesin/ Dextromethorphan 10 ml Q4HP PRN PO 05/31/24 09:45 Doxycycline Hyclate 100 ml @ 50 mls/hr Q12H IV 05/31/24 17:00 06/01/24 04:36 50 MLS/HR Mupirocin 1 applic BID EACHNOSTRI 05/31/24 22:00 06/05/24 21:59 06/01/24 09:31 1 APPLIC Laboratory Results Laboratory Tests 05/31/24 06:33 Urinalysis Test 05/31/24 06:30 Urine Color Colorless (Yellow) Urine Clarity Clear (Clear) Urine pH 6.0 (5.0-9.0) Urine Specific [place] 1.019 (1.001-1.035) Urine Protein Negative (Negative) Urine Ketones Negative (Negative) Urine Blood Negative /uL (Negative) Urine Nitrite Negative (Negative) Urine Bilirubin Negative (Negative) Urine Urobilinogen Normal mg/dL (Negative) Urine Leukocyte Esterase Negative /uL (Negative) Urine RBC <1 /hpf (0 - 4) Urine Microscopic WBC /HPF (0-5) Urine Squamous Epithelial Cells Few /hpf (<5) Urine Bacteria None seen /hpf (None Seen) Urine Glucose 4+ mg/dL (Normal) H Microbiology Microbiology Date/Time Source Procedure Growth Status 05/31/24 01:35 Nose MRSA Screen - Final Methicillin Resistant S.aureus Complete Labs and/or images reviewed: Labs reviewed by me, Image(s) reviewed by me Assessment/Plan Assessment/Plan 06/01 - improving. wheezing much improved. need few more days tx iv abx and steroids. nares mrsa,. will gives bactroban and change azithro to doxy. likely 2 more days tx then outpaitnet abx after sat-sun. Diagnosis: Acute severe asthma exacerbation Acute hypoxic respiratory failure due to above Community-acquired pneumonia, Gram-negative/Gram-positive possible. Nares MRSA positive Bronchitis possible Chronic tobacco dependence (2 cigarettes per day) History of asthma Hypertension Hyperlipidemia Diabetes GERD Depression Fibromyalgia Obesity GAMA Plan: IV steroids Solu-Medrol b.i.d. Nares Bactroban ointment b.i.d. for 5 days Duo nebs q.6 H while awake Escalate antibiotics to ceftriaxone/doxycycline given MRSA positive nares. Prior given Ceftriaxone/azithromycin IV antibiotics Diabetic diet Oxygen maintain saturations > 90% Avoid tobacco abuse, nicotine patch p.r.n. offered Continue home medications Hold diabetes p.o. medications, employ mild SSI a.c. HS Diabetic diet DVT Lovenox subQ GI prophylaxis tolerating p.o. Med surge Full code Plan discussed with: Patient My Orders Orders - ALBARO OCONNELL MD Procedure Category Date Status Time Doxycycline PHA 05/31/24 In Process 100mg/100ml 17:00 Mupirocin 2% Oint PHA 05/31/24 In Process Mrsa Nares (Bactroban 22:00 Cleanse Wound With FRANCISCO 05/31/24 In Process Wound Clean 11:35 Complete Blood Count LAB 06/01/24 Logged 12:19 Comprehensive LAB 06/02/24 Verified Metabolic Panel 04:00 Complete Blood Count LAB 06/02/24 Verified 04:00 Date of Service: Jun 01, 2024 Billing Provider: ALBARO OCONNELL MD Common Visit Codes: [id number] INP/OBS CARE(HIGH) ALBARO OCONNELL MD Jun 01, 2024 12:26
[2024-06-01 13:02] LABS: Basophils # (auto) 0 10 ^3/uL (0-0.2); Basophils % (auto) 0.4 % (0.0-2.0); Eosinophils # (auto) 0 10 ^3/uL (0-0.8); Eosinophils % (auto) 0.1 % (0.0-7.0); Hematocrit 43.9 % (36.0-46.0); Hemoglobin 14.9 g/dL (12.2-16.2); Lymphocytes % (auto) 10.7 % (10.0-50.0); Mean Corpuscular Hemoglobin 29.2 pg (28.0-32.0); Mean Corpuscular Volume 86.1 fL (80.0-100.0); Monocytes # (auto) 0.3 10 ^3/uL (0-1.3); Monocytes % (auto) 2.8 % (0.0-12.0); Platelet Count (auto) 242 10^3/uL (140-450); Red Cell Distribution Width 14.8 % (11.8-14.3); White Blood Cell 9.3 10^3/uL (4.4-10.8)
[2024-06-02] VITALS (15 sets, daily range): BP systolic 105–138; BP diastolic 47–82; PULSE 63–95; RESP 15–20; TEMP 97.5–98.6; O2SAT 92–99
[2024-06-02 06:12] LABS: Basophils # (auto) 0 10 ^3/uL (0-0.2); Basophils % (auto) 0.3 % (0.0-2.0); Eosinophils # (auto) 0 10 ^3/uL (0-0.8); Eosinophils % (auto) 0.1 % (0.0-7.0); Hematocrit 43.9 % (36.0-46.0); Lymphocytes # (auto) 1.3 10 ^3/uL (0.4-5.4); Lymphocytes % (auto) 14.7 % (10.0-50.0); Mean Corpuscular Hemoglobin 29.2 pg (28.0-32.0); Mean Corpuscular Hgb Conc. 34.3 g/dL (32.0-36.0); Mean Corpuscular Volume 85.3 fL (80.0-100.0); Monocytes # (auto) 0.2 10 ^3/uL (0-1.3); Monocytes % (auto) 2.7 % (0.0-12.0); Neutrophils # (auto) 7.1 10 ^3/uL (1.6-8.6); Neutrophils % (auto) 82.2 % (37.0-80.0); Nucleated Red Blood Cells % 0.1 %; Platelet Count (auto) 268 10^3/uL (140-450); Red Blood Cells 5.15 10^6/uL (4.0-5.20); Red Cell Distribution Width 14.8 % (11.8-14.3); White Blood Cell 8.7 10^3/uL (4.4-10.8)
[2024-06-02 06:38] LABS: Alanine Aminotransferase 16 U/L (7-40); Anion Gap 10 (5-15); BUN/Creatinine Ratio 26.7 (10.0-20.0); Calcium 10.3 mg/dL (8.7-10.4); Carbon Dioxide 24 mmol/L (20-31); Chloride 101 mmol/L (98-107); Potassium 4.4 mmol/L (3.5-5.1); Total Protein 7.9 g/dL (5.7-8.2)
[2024-06-02 06:39] LABS: Bilirubin, Total 0.5 mg/dL (0.2-1.0)
[2024-06-02 06:40] LABS: Albumin 5.2 g/dL (3.2-4.8); Alkaline Phosphatase 129 U/L (46-116); Aspartate Aminotransferase < 8 U/L (13-40); Blood Urea Nitrogen 27 mg/dL (9-23); Glucose 248 mg/dL (74-106); Sodium 135 mmol/L (136-145)
[2024-06-02] MEDS: FUROSEMIDE 20 MG/2 ML VIAL IV ONE (18:13)
--- NOTE | 2024-06-02 18:30 | DVHPN2 ---
Subjective Patient denies any symptoms at this time Reviewed: H&P Changes from previous H/P or p: No Changes General: Per HPI Objective Vitals Vital Signs Date Time Temp Pulse Resp B/P (MAP) Pulse Ox O2 Delivery O2 Flow Rate FiO2 06/02/24 18:13 132/67 06/02/24 17:04 97.6 78 19 93 97.6 06/02/24 12:10 Nasal Cannula* 3 32 Intake/Output Intake and Output 06/02/24 07:00 Intake Total 1864 ml Balance 1864 ml Intake Oral 1714 ml IV Total 150 ml # Voids 8 # Bowel Movements 1 General Appearance: Alert, Oriented X3, Cooperative, No acute distress HEENT: Atraumatic, PERRLA Lungs: Clear to auscultation, Normal air movement Cardiovascular: Normal S1, Normal S2 Abdomen: Normal bowel sounds Musculoskeletal: Normal sensory function, Normal motor function Neuro: Normal speech Skin: Dry, Intact Psych/Mental Status: Mental status NL, Mood NL Medications Current Medications Medications Dose Ordered Sig/Devan Route Start Time Stop Time Status Last Admin Dose Admin Sodium Chloride 10 ml Q8HR IV 05/30/24 14:00 06/02/24 13:14 10 ML Ondansetron HCl 4 mg Q4HP PRN IV 05/30/24 08:00 Docusate Sodium 100 mg BIDPRN PRN PO 05/30/24 08:00 Acetaminophen 650 mg Q6HP PRN PO 05/30/24 08:00 05/30/24 20:40 650 MG Nitroglycerin 0.4 mg Q5MINP PRN SL 05/30/24 08:00 Morphine Sulfate 2 mg Q30M PRN IV 05/30/24 08:00 Diagnostic Test (Pha) 1 strip ACHS 05/30/24 11:30 06/02/24 16:32 1 STRIP Insulin Human Regular HS SC 05/30/24 22:00 06/01/24 21:24 4 UNITS Insulin Human Regular AC SC 05/30/24 11:30 06/02/24 16:32 9 UNITS Dextrose 50 ml UD PRN IV 05/30/24 08:00 Ipratropium [place] 0.5 mg Q6HWA NEB 05/30/24 12:00 06/02/24 12:10 0.5 MG Albuterol 2.5 mg Q6HWA NEB 05/30/24 12:00 06/02/24 12:10 2.5 MG Ceftriaxone Sodium 50 ml @ 100 mls/hr DAILY@09 IV 05/30/24 09:00 06/02/24 08:42 100 MLS/HR Empaglifozin 10 mg DAILY PO 05/30/24 10:00 06/02/24 08:42 10 MG Trazodone HCl 50 mg HS PO 05/30/24 22:00 06/01/24 21:16 50 MG Atorvastatin Calcium 10 mg HS PO 05/30/24 22:00 06/01/24 21:16 10 MG Duloxetine HCl 60 mg BID PO 05/30/24 10:00 06/02/24 08:42 60 MG Lisinopril 2.5 mg DAILY PO 05/30/24 10:00 06/02/24 08:43 2.5 MG Patient Own Medication 1 tab DAILY PO 05/30/24 10:00 Oxycodone HCl 10 mg Q8HR PO 05/30/24 22:00 06/02/24 14:05 10 MG Patient Own Medication 1 cap QID PRN PO 05/30/24 08:00 Pantoprazole Sodium 40 mg DAILY@0700 PO 05/30/24 10:00 06/02/24 06:03 40 MG Guaifenesin/ Dextromethorphan 10 ml Q4HP PRN PO 05/31/24 09:45 Doxycycline Hyclate 100 ml @ 50 mls/hr Q12H IV 05/31/24 17:00 06/02/24 17:03 50 MLS/HR Mupirocin 1 applic BID EACHNOSTRI 05/31/24 22:00 06/05/24 21:59 06/02/24 09:37 1 APPLIC Methylprednisolone Sodium Succinate 40 mg DAILY IV 06/03/24 10:00 Laboratory Results Laboratory Tests 06/02/24 05:03 Chemistry Test 06/02/24 05:03 Albumin 5.2 g/dL (3.2-4.8) H Calcium Level 10.3 mg/dL (8.7-10.4) Total Protein 7.9 g/dL (5.7-8.2) LFT Test 06/02/24 05:03 Alanine Aminotransferase (ALT) 16 U/L (7-40) Alkaline Phosphatase 129 U/L (46-116) H Aspartate Amino Transferase (AST) < 8 U/L (13-40) L Total Bilirubin 0.5 mg/dL (0.2-1.0) Urinalysis Test 05/31/24 06:30 Urine Color Colorless (Yellow) Urine Clarity Clear (Clear) Urine pH 6.0 (5.0-9.0) Urine Specific [place] 1.019 (1.001-1.035) Urine Protein Negative (Negative) Urine Ketones Negative (Negative) Urine Blood Negative /uL (Negative) Urine Nitrite Negative (Negative) Urine Bilirubin Negative (Negative) Urine Urobilinogen Normal mg/dL (Negative) Urine Leukocyte Esterase Negative /uL (Negative) Urine RBC <1 /hpf (0 - 4) Urine Microscopic WBC /HPF (0-5) Urine Squamous Epithelial Cells Few /hpf (<5) Urine Bacteria None seen /hpf (None Seen) Urine Glucose 4+ mg/dL (Normal) H Microbiology Microbiology Date/Time Source Procedure Growth Status 05/31/24 01:35 Nose MRSA Screen - Final Methicillin Resistant S.aureus Complete Labs and/or images reviewed: Labs reviewed by me, Image(s) reviewed by me Assessment/Plan Assessment/Plan Impression: -acute hypoxic respiratory failure -acute asthma exacerbation -community-acquired pneumonia, probable Gram-positive/Gram-negative etiology -obesity -diabetes mellitus Plan: -continue antibiotic therapy -continue bronchodilators -titrate Solu-Medrol -continue regular insulin sliding scale -repeat chest x-ray -smoking cessation education: 10 minutes spent discussing with the patient the need to stop smoking -reassess for discharge in a.m. Total time spent with patient discussing and formulating plan of care: 35 minutes. This medical document was created using an electronic medical record system with [employer] dictation system. Although this document has been carefully reviewed, there may still be some phonetic and typographical errors. These areas are purely typographical due to imperfections of the software programs, and do not reflect any compromise in the patient's medical care. Plan discussed with: Patient, Other (RN) My Orders Orders - BAM GARZA NP Procedure Category Date Status Time Methylprednisolone PHA 06/03/24 In Process Sod Succ (Solu Medrol 10:00 Chest Xray 1 View XY 06/02/24 Logged 17:47 Date of Service: Jun 02, 2024 Billing Provider: BAM GARZA NP Common Visit Codes: [id number] INP/OBS CARE(HIGH) BAM GARZA NP Jun 02, 2024 18:29
[2024-06-03] VITALS (11 sets, daily range): BP systolic 101–127; BP diastolic 64–80; PULSE 72–97; RESP 17–18; TEMP 97.5–98.6; O2SAT 92–100
[2024-06-03] MEDS: methylPREDNISolone SOD SUCC 40 MG/ML VL IV SCH (09:29)
[2024-06-03] MEDS ORDERED: PRED20TA2 PO (10:24)
[2024-06-03] MEDS ORDERED: ALBU0.084 NEB (10:24)
--- NOTE | 2024-06-03 10:29 | DVHDS2 ---
Discharge Summary Date of Admission May 30, 2024 at 07:46 Date of Discharge: Jun 03, 2024 Admitting Diagnosis Acute severe has been exacerbation Labs/Diagnostic Data: Laboratory Results Test 06/03/24 06:27 06/02/24 05:03 05/31/24 06:33 05/31/24 06:30 POC Glucose 210 mg/dl (70-106) White Blood Count 8.7 10^3/uL (4.4-10.8) Red Blood Count 5.15 10^6/uL (4.0-5.20) Hemoglobin 15.0 g/dL (12.2-16.2) Hematocrit 43.9 % (36.0-46.0) Mean Corpuscular Volume 85.3 fL (80.0-100.0) Mean Corpuscular Hemoglobin 29.2 pg (28.0-32.0) Mean Corpuscular Hemoglobin Concent 34.3 g/dL (32.0-36.0) Red Cell Distribution Width 14.8 % (11.8-14.3) Platelet Count 268 10^3/uL (140-450) Mean Platelet Volume 9.2 fL (6.9-10.8) Neutrophils (%) (Auto) 82.2 % (37.0-80.0) Lymphocytes (%) (Auto) 14.7 % (10.0-50.0) Monocytes (%) (Auto) 2.7 % (0.0-12.0) Eosinophils (%) (Auto) 0.1 % (0.0-7.0) Basophils (%) (Auto) 0.3 % (0.0-2.0) Neutrophils # (Auto) 7.1 10 ^3/uL (1.6-8.6) Lymphocytes # (Auto) 1.3 10 ^3/uL (0.4-5.4) Monocytes # (Auto) 0.2 10 ^3/uL (0-1.3) Eosinophils # (Auto) 0 10 ^3/uL (0-0.8) Basophils # (Auto) 0 10 ^3/uL (0-0.2) Nucleated Red Blood Cells 0.1 % Sodium Level 135 mmol/L (136-145) Potassium Level 4.4 mmol/L (3.5-5.1) Chloride Level 101 mmol/L (98-107) Carbon Dioxide Level 24 mmol/L (20-31) Anion Gap 10 (5-15) Blood Urea Nitrogen 27 mg/dL (9-23) Creatinine 1.01 mg/dL (0.550-1.02) Glomerular Filtration Rate Calc 67 mL/min (>90) BUN/Creatinine Ratio 26.7 (10.0-20.0) Serum Glucose 248 mg/dL (74-106) Calcium Level 10.3 mg/dL (8.7-10.4) Total Bilirubin 0.5 mg/dL (0.2-1.0) Aspartate Amino Transferase (AST) < 8 U/L (13-40) Alanine Aminotransferase (ALT) 16 U/L (7-40) Alkaline Phosphatase 129 U/L (46-116) Total Protein 7.9 g/dL (5.7-8.2) Albumin 5.2 g/dL (3.2-4.8) Hemoglobin A1c 6.9 % A1C (<5.7) Urine Color Colorless (Yellow) Urine Clarity Clear (Clear) Urine pH 6.0 (5.0-9.0) Urine Specific [place] 1.019 (1.001-1.035) Urine Protein Negative (Negative) Urine Ketones Negative (Negative) Urine Blood Negative /uL (Negative) Urine Nitrite Negative (Negative) Urine Bilirubin Negative (Negative) Urine Urobilinogen Normal mg/dL (Negative) Urine Leukocyte Esterase Negative /uL (Negative) Urine RBC <1 /hpf (0 - 4) Urine Microscopic WBC /HPF (0-5) Urine Squamous Epithelial Cells Few /hpf (<5) Urine Bacteria None seen /hpf (None Seen) Urine Glucose 4+ mg/dL (Normal) Test 05/29/24 21:56 05/29/24 19:50 Troponin I High Sensitivity 3 ng/L (</=34) Differential Total Cells Counted 100.0 (100) Neutrophils % (Manual) 52 (37.0-80.0) Band Neutrophils % (Manual) 1 Lymphocytes % (Manual) 25 (10.0-50.0) Monocytes % (Manual) 4 (0-12) Eosinophils % (Manual) 18 (0-7) Basophils % (Manual) 0 (0.0-2.0) Metamyelocytes % (manual) 0 Myelocytes % (Manual) 0 Promyelocytes % (Manual) 0 Blast Cells % (Manual) 0 Reactive Lymphocytes 0 Platelet Estimate Adequate B-Type Natriuretic Peptide 43.01 pg/mL (0-100) Other Laboratory Tests 06/02/24 05:03 Brief Hx & Hospital Course: History of Present Illness Olena Szymanski is a 54-year-old female with past medical history of hypertension, hyperlipidemia, asthma, diabetes, GERD, depression, fibromyalgia, obesity, chronic pain, and sleep apnea who came in with complaints of shortness of breath. Patient states she had walking pneumonia in the beginning of March. She was told the cough could last for 4-6 weeks. She was getting better the beginning of April, then she was around her nieces and nephews about 1.5 weeks ago and her cough has worsened. She states te cough has been becoming progressively worse over the last week. She went to urgent care yesterday to get some cough syrup and was told to go to the ER due to low oxygenation. Patient was on 2L NC on assessment with O2 sat 91%. Course of hospitalization: Patient was started on empiric antibiotic therapy, O2 supplementation, bronchodilators, IV Solu-Medrol. Patient was respiratory status improved. On room air her saturations are 97%. Auscultating the patient's lungs, I found no further wheezing. The patient was ambulating without difficulty. Patient will be discharged home as well as being prescribed prednisone 20 mg p.o. daily x4 days as well as given a prescription for a refill on the patient's albuterol nebulizer. Patient was agreeable with discharge plan. All questions answered. Physical examination General: Alert and Oriented x3. No acute distress. Well-nourished. Eyes: EOMI. Anicteric. HENT: Moist mucous membranes. Lungs: Clear to auscultation bilaterally. No accessory muscle use. Cardiovascular: Regular rate and rhythm. No murmur. No JVD. Abdomen: Soft, non-tender and non-distended. No palpable masses. Extremities: No edema. Non-tender. Skin: No rashes or lesions. Warm. Neurologic: No focal neurological deficits. CN II-XII grossly intact, but not individually tested. Psychiatric: Cooperative. Appropriate mood and affect. Total time spent with patient discussing and formulating plan of care: 35 minutes. This medical document was created using an electronic medical record system with [employer] dictation system. Although this document has been carefully reviewed, there may still be some phonetic and typographical errors. These areas are purely typographical due to imperfections of the software programs, and do not reflect any compromise in the patient's medical care. Condition at Discharge: Fair Final Diagnosis/Problems List Acute on chronic hypoxic respiratory failure Secondary diagnosis: -acute hypoxic respiratory failure -acute asthma exacerbation -community-acquired pneumonia, probable Gram-positive/Gram-negative etiology -obesity -diabetes mellitus -nicotine dependence -obstructive sleep apnea with home CPAP Discharge Disposition: Home Discharge Instruct/Medications Diet: Regular Activity: No Restrictions, As Tolerated Follow Up/Referral: Follow up with discharge Clinic in one week Follow up with the PCP in 1-2 weeks Medications: Continue all home medications per medication reconciliation Albuterol nebulizer q.4 hours as needed for dyspnea Prednisone 20 mg p.o. daily x4 days 36 Discharge Statement: "Patient was advised to return to the ER or call 911 if any headaches, dizziness, shortness of breath, chest pain, abdominal pain, bleeding, fevers, or worsening of medical condition. Patient was counseled about treatment plan, medications, possible side effects, patientverbalized understanding. All questions were answered to the best of my ability. This discharge took greater then 30 minutes in planning, reviewing documentation, counseling the patient, and discussing with other team members." ASSESSMENT ASSESSMENT Assessment Acute on chronic hypoxic respiratory failure Date of Service: Jun 03, 2024 Billing Provider: BAM GARZA NP Common Visit Codes: [id number] DISCH DAY >30min BAM GARZA NP Jun 03, 2024 10:29
--- NOTE | 2024-06-03 11:14 | DVH ---
EXAM: XR Chest, 1 View CLINICAL INDICATION: PNA TECHNIQUE: Frontal view of the chest. COMPARISON: XY CHEST PORTABLE on DOS: 05/31/24, XY CHEST PORTABLE on DOS: 05/29/24, XY CHEST XRAY 1 EW on DOS: 03/26/24, XY CHEST XRAY 1 VIEW on DOS: 08/03/23, CHEST PORTABLE on DOS: 10/19/21 FINDINGS: LUNGS AND PLEURAL SPACES: Unremarkable. No consolidation. No pneumothorax. HEART: Unremarkable. No cardiomegaly. MEDIASTINUM: Unremarkable. Normal mediastinal contour. BONES/JOINTS: Unremarkable. No acute fracture. OTHER FINDINGS: . None. IMPRESSION: No acute cardiopulmonary process.
== END 2024-06-03 14:10 | disposition home or self-care (01) | DRG 133 ==
LOC: ER 18:39 → OVERFLOW 05-30 07:46 → TELE-WESTW 05-30 22:28
PROVIDERS: ADMIT Nurse Practitioner Acute Care; ATTEND Nurse Practitioner Acute Care
DX: J96.21 Acute and chronic respiratory failure with hypoxia (principal); J15.69 Pneumonia due to other Gram-negative bacteria; E11.40 Type 2 diabetes mellitus with diabetic neuropathy, unspecified; J45.41 Moderate persistent asthma with (acute) exacerbation; J15.9 Unspecified bacterial pneumonia; K21.9 Gastro-esophageal reflux disease without esophagitis; J40 Bronchitis, not specified as acute or chronic; E11.65 Type 2 diabetes mellitus with hyperglycemia; Z68.38 Body mass index [BMI] 38.0-38.9, adult; E78.5 Hyperlipidemia, unspecified; I10 Essential (primary) hypertension; M79.7 Fibromyalgia; F32.A Depression, unspecified; D86.9 Sarcoidosis, unspecified; G89.29 Other chronic pain; G47.33 Obstructive sleep apnea (adult) (pediatric); F41.9 Anxiety disorder, unspecified; E66.9 Obesity, unspecified; E05.90 Thyrotoxicosis, unspecified without thyrotoxic crisis or storm; F17.210 Nicotine dependence, cigarettes, uncomplicated; Z88.1 Allergy status to other antibiotic agents; Z79.51 Long term (current) use of inhaled steroids; Z79.84 Long term (current) use of oral hypoglycemic drugs; Z79.899 Other long term (current) drug therapy; Z88.8 Allergy status to other drugs, medicaments and biological substances; Z90.49 Acquired absence of other specified parts of digestive tract; Z98.891 History of uterine scar from previous surgery
CPT/HCPCS: 36415; 71045; 80048; 80053; 81001; 82962; 83036; 83880; 84484; 85007; 85025; 85027; 87081; 93005; 94640; 99291; G0378; J1815

== ENCOUNTER 2024-09-13 15:59 | Emergency (ER) | payer MEDICAID ==
[~2024-09-13] VITALS: Ht 157.5 cm; Wt 98.9 kg
[~2024-09-13 15:59] MED LIST changes: +ALBU0.084 NEB; -ALBU108A5 IN; -AZIT500T66 PO; -BACDST PO; +CETI-120 PO; +INSUINJ3 SC; -LINA5TAB PO; +OMEP1CAP70 PO; -PROM1SOL4 PO; +SEMA2INJ3 SC
[2024-09-13 16:46] VITALS: BP 118/83; PULSE 109; RESP 19; TEMP 97.5; O2SAT 93
--- NOTE | 2024-09-13 17:30 | ED.PDOC ---
Eye-HPI HPI Comments This is a 54 year old female presenting to the ED with chief complaint of sinus pressure. Patient reports that she has been experiencing sinus pressure for the past few days with associated facial swelling. Patient relays that she visited and was diagnosed with a sinus infection, getting a Rx for antibiotics today, but has not taken them yet. Patient states she has multiple other complaints of left hand pain and joint pain, but notes she has history of fibromyalgia and sarcoidosis. Patient notes she is currently on Ozempic and takes Oxycodone 3 times a day for pain relief. Patient denies any chest pain, SOB, dizziness, fever, chills, cough, or congestion. Chief Complaint: Face pain Time Seen by MD: 17:28 Primary Care Provider: ERVIN LAMB Reviewed Notes: Nurses Notes, Medications, Allergies Allergies: Coded Allergies: Cephalexin (Verified Allergy, Severe, 08/02/23) Hydroxychloroquine (Verified Allergy, Unknown, 06/06/20) Home Meds Active Scripts Prednisone (Prednisone) 20 Mg Tab, 20 MG PO DAILY for 4 Days, #4 MG Prov:BAM GARZA GRASS CUTTER 06/03/24 Albuterol Sulfate (Albuterol Sulfate) 0.083 % Neb, 1 VIAL NEB Q4HPRN for 30 Days, #50 VIAL Prov:BAM GARZA GRASS CUTTER 06/03/24 Reported Medications Semaglutide (Ozempic) 2 Mg/3 Ml Inj, 0.5 MG SC QWEEKLY for DM, INJ 05/31/24 Insulin Regular (Human) (Humulin R U-500 (Concentr) 500 Unit/Ml Inj, 30 UNIT SC BID for DM , INJ 05/31/24 Omeprazole (Omeprazole Dr) 20 Mg Cap, 40 MG PO DAILY, CAP 05/30/24 Cetirizine HCl (Cetirizine Hydrochloride) 10 Mg Tab, 1 TAB PO DAILYPRN PRN 05/30/24 Metformin Hydrochloride (Metformin Hcl Er) 500 Mg Tab, 2 TAB PO QAM 08/02/23 Trazodone Hcl (Trazodone Hcl) 50 Mg Tab, 1 TAB PO HS 08/02/23 Meloxicam (Meloxicam) 15 Mg Tab, 1 TAB PO DAILY 08/02/23 Tizanidine Hydrochloride (TIZANIDINE HCL) 6 Mg Cap, 1 CAP PO QID PRN 08/02/23 Oxycodone HCl (Oxycodone Hydrochloride) 10 Mg Tab, 1 TAB PO TID 08/02/23 Albuterol Sulfate (Albuterol Sulfate Hfa) 108 Mcg/Act Aer, 2 PUFF INH Q4HPRN PRN 08/02/23 Fluticasone Propionate (Nasal) (Fluticasone Propionate) 50 Mcg/Act Spr, 1 SPRAY JACKI DAILY 08/02/23 Lisinopril (Lisinopril) 2.5 Mg Tab, 1 TAB PO DAILY 08/02/23 Atorvastatin Calcium (ATORVASTATIN CALCIUM) 10 Mg Tab, 1 TAB PO DAILY 08/02/23 Duloxetine HCl (Duloxetine HCl) 60 Mg Cap, 60 CAP PO BID 08/02/23 Empagliflozin (Jardiance) 10 Mg Tab, 1 TAB PO DAILY 08/02/23 Information Source: Patient Mode of Arrival: Ambulatory Timing: Days Duration: Since onset Prehospital treatment: None Quality: Pain Sinuses: Frontal Onset: Spontaneous Past Medical History PAST MEDICAL HISTORY: Asthma, Depression, DM, GERD, High Lipids, HTN, Thyroid Past Medical History (Other): Fibromyalgia, Sarcoidosis Surgical History: Denies all surgeries LOW PRESSURE FIRER History: No Pertinent LOW PRESSURE FIRER History Family History Family History: Reviewed,noncontributory to illness Social History Smoker: Cigarettes Alcohol: Denies ETOH Use Drugs: Denies Drug Use Lives In: Home Constitutional: denies: chills, diaphoresis, fatigue, fever, malaise, sweats, weakness, others EENTM: reports: others (Sinus pressure, facial swelling); denies: blurred vision, double vision, ear bleeding, ear discharge, ear drainage, ear pain, ear ringing, eye pain, eye redness, hearing loss, mouth pain, mouth swelling, nasal discharge, nose bleeding, nose congestion, nose pain, photophobia, tearing, throat pain, throat swelling, voice changes Respiratory: denies: cough, hemoptysis, orthopnea, SOB at rest, shortness of breath, SOB with excertion, stridor, wheezing, others Cardiovascular: denies: chest pain, dizzy spells, diaphoresis, Dyspnea on exertion, edema, irregular heart beat, left arm pain, lightheadedness, palpitations, PND, syncope, others Gastrointestinal: denies: abdomen distended, abdominal pain, blood streaked bowels, constipated, diarrhea, dysphagia, difficulty swallowing, hematemesis, melena, nausea, poor appetite, poor fluid intake, rectal bleeding, rectal pain, vomiting, others Genitourinary: denies: abnormal vagina bleeding, burning, dyspareunia, dysuria, flank pain, frequency, hematuria, incontinence, pain, , vagina discharge, urgency, others Neurological: denies: dizziness, fainting, headache, left sided numbness, left sided weakness, numbness, paresthesia, pre-existing deficit, right sided numbness, right sided weakness, seizure, speech problems, tingling, tremors, weakness, others Musculoskeletal: reports: others (Left hand pain, joint pain); denies: back pain, gout, joint pain, joint swelling, muscle pain, muscle stiffness, neck pain Integumetry: denies: bruises, change in color, change in hair/nails, dryness, laceration, lesions, lumps, rash, wounds, others Allergic/Immunocompromised: denies: Difficulty Healing, Frequent Infections, Hives, Itching, others Hematologic/Lymphatic: denies: anemia, blood clots, easy bleeding, easy bruising, swollen glands, others Endocrine: denies: excessive hunger, excessive sweating, excessive thirst, excessive urination, flushing, intolerance to cold, intolerance to heat, unexplained weight gain, unexplained weight loss, others Psychiatric: denies: anxiety, bipolar disorder, depression, hopeless, panic disorder, schizophrenia, sleepless, suicidal, others All Other Systems: Reviewed and Negative Physical Exam General Appearance: No Apparent Distress, Normal HEENT: Normal ENT Inspection, Pharynx Normal, TMs Normal, Other (Bilateral sinus pressure) Neck: Full Range of Motion, Non-Tender, Normal, Normal Inspection Respiratory: Chest Non-Tender, Lungs Clear, No Accessory Muscle Use, No Respiratory Distress, Normal Breath Sounds Cardiovascular: No Edema, No JVD, No Murmur, No Gallop, Normal Peripheral Pulses, Regular Rate/Rhythm Breast Exam: Deferred Gastrointestinal: No Organomegaly, Non Tender, No Pulsatile Mass, Normal Bowel Sounds, Soft Genitalia: Deferred Pelvic: Deferred Rectal: Deferred Extremities: No calf tenderness, Normal capillary refill, Normal inspection, Normal range of motion, Non-tender, No pedal edema Musculoskeletal : Apperance: Normal Neurologic: Alert, growth media mixer mushroom II-XII nml as Tested, No Motor Deficits, Normal Affect, Normal Mood, No Sensory Deficits Cerebellar Function: Normal Reflexes: Normal Skin: Dry, Normal Color, Warm Lymphatic: No Adenopathy Was a procedure done? Was a procedure done?: No EENT DIFF Eye: N/A Ear: Otitis Media, Perforation, Dental Nose: Hypertension Sore Throat: Peritonsillar Abscess, Peritonsillar Cellulitis, Pharyngitis, Streptococcal, Viral Pharyngitis X-Ray, Labs, Meds, VS Vital Signs Date Time Temp Pulse Resp B/P (MAP) Pulse Ox O2 Delivery O2 Flow Rate FiO2 09/13/24 16:46 97.5 109 19 118/83 (95) 93 97.5 Lab Test 09/13/24 18:49 09/13/24 17:41 Range/Units Urine Color Dark-yellow Yellow Urine Clarity Turbid H Clear Urine pH 5.5 5.0-9.0 Urine Specific [place] 1.041 H 1.001-1.035 Urine Protein 1+ H Negative Urine Ketones 1+ H Negative Urine Blood Negative Negative /uL Urine Nitrite Negative Negative Urine Bilirubin 1+ H Negative Urine Urobilinogen 4 H Negative mg/dL Urine Leukocyte Esterase Trace Negative /uL Urine RBC 2 0 - 4 /hpf Urine Microscopic WBC 6 H 0-5 /HPF Urine Squamous Epithelial Cells Mod <5 /hpf Urine Bacteria Few H None Seen /hpf Urine Hyaline Casts Many 0 - 2 /lpf Urine Mucus Few None Seen Urine Yeast (Budding) Occasional None Seen /hpf Urine Glucose Trace Normal mg/dL White Blood Count 10.7 4.4-10.8 10^3/uL Red Blood Count 5.20 4.0-5.20 10^6/uL Hemoglobin 14.3 12.2-16.2 g/dL Hematocrit 43.6 36.0-46.0 % Mean Corpuscular Volume 83.9 80.0-100.0 fL Mean Corpuscular Hemoglobin 27.5 L 28.0-32.0 pg Mean Corpuscular Hemoglobin Concent 32.8 32.0-36.0 g/dL Red Cell Distribution Width 15.6 H 11.8-14.3 % Platelet Count 256 140-450 10^3/uL Mean Platelet Volume 8.9 6.9-10.8 fL Neutrophils (%) (Auto) 60.2 37.0-80.0 % Lymphocytes (%) (Auto) 25.7 10.0-50.0 % Monocytes (%) (Auto) 5.6 0.0-12.0 % Eosinophils (%) (Auto) 7.7 H 0.0-7.0 % Basophils (%) (Auto) 0.8 0.0-2.0 % Neutrophils # (Auto) 6.4 1.6-8.6 10 ^3/uL Lymphocytes # (Auto) 2.8 0.4-5.4 10 ^3/uL Monocytes # (Auto) 0.6 0-1.3 10 ^3/uL Eosinophils # (Auto) 0.8 0-0.8 10 ^3/uL Basophils # (Auto) 0.1 0-0.2 10 ^3/uL Nucleated Red Blood Cells 0.0 % Sodium Level 143 136-145 mmol/L Potassium Level 3.6 3.5-5.1 mmol/L Chloride Level 108 H 98-107 mmol/L Carbon Dioxide Level 25 20-31 mmol/L Anion Gap 10 5-15 Blood Urea Nitrogen 19 9-23 mg/dL Creatinine 1.21 H 0.550-1.02 mg/dL Glomerular Filtration Rate Calc 54 >90 mL/min BUN/Creatinine Ratio 15.7 10.0-20.0 Serum Glucose 143 H 74-106 mg/dL Calcium Level 10.0 8.7-10.4 mg/dL Total Bilirubin 0.3 0.2-1.0 mg/dL Aspartate Amino Transferase (AST) 24 13-40 U/L Alanine Aminotransferase (ALT) 22 7-40 U/L Alkaline Phosphatase 138 H 46-116 U/L Total Protein 7.2 5.7-8.2 g/dL Albumin 4.7 3.2-4.8 g/dL Time of 1ST Reevaluation: 18:28 Reevaluation 1ST: Unchanged Patient Education/Counseling: Diagnosis, Treatment Family Education/Counseling: No Family Present SEPSIS Sepsis Screen Date sepsis recognized/suspect: Sep 13, 2024 Time Sepsis recognized/suspect: 1629 Recent Procedure: No On Antibiotic Therapy: No Respiratory Rate >20: No Heart Rate >90: No Temp<36 C (96.8 F) or >38.3 C: No SBP <90 or MAP <65 mmHG: No New Acute Mental Status Change: No Is the patient on CPAP, BIPAP,: No Physician Orders Maxillofacial Without (09/13/24 17:13) Vital Signs Date Time Temp Pulse Resp B/P (MAP) Pulse Ox O2 Delivery O2 Flow Rate FiO2 09/13/24 16:46 97.5 109 19 118/83 (95) 93 97.5 Laboratory Tests Test 09/13/24 17:41 White Blood Count 10.7 10^3/uL (4.4-10.8) Departure 1 Departure Time of Disposition: 19:45 Impression: Primary Impression: Sinusitis Qualified Codes: J01.01 - Acute recurrent maxillary sinusitis Disposition: HOME / SELF CARE / HOMELESS Condition: Fair Discharged With: Self Critical Care Note Critical Care Time?: No Stability Stability form required: No Heart Score Heart Score: Heart Score Response (Comments) Value History N/A 0 EKG N/A 0 Age N/A 0 Risk Factors N/A 0 Troponin N/A 0 Total 0 I personally scribed for ANDI MONZON ([email or web address]) on 09/13/24 at 17:30. Electronically submitted by Tre Fair ([email or web address]). ANDI MONZON Sep 13, 2024 17:30
[2024-09-13 18:02] LABS: Hematocrit 43.6 % (36.0-46.0); Hemoglobin 14.3 g/dL (12.2-16.2); Mean Corpuscular Hemoglobin 27.5 pg (28.0-32.0); Mean Corpuscular Volume 83.9 fL (80.0-100.0); Nucleated Red Blood Cells % 0.0 %
[2024-09-13 18:17] LABS: Alanine Aminotransferase 22 U/L (7-40); Calcium 10.0 mg/dL (8.7-10.4)
[2024-09-13 18:18] LABS: Albumin 4.7 g/dL (3.2-4.8); BUN/Creatinine Ratio 15.7 (10.0-20.0); Bilirubin, Total 0.3 mg/dL (0.2-1.0); Blood Urea Nitrogen 19 mg/dL (9-23); Carbon Dioxide 25 mmol/L (20-31); Potassium 3.6 mmol/L (3.5-5.1); Sodium 143 mmol/L (136-145); Total Protein 7.2 g/dL (5.7-8.2)
[2024-09-13 18:19] LABS: Anion Gap 10 (5-15); Chloride 108 mmol/L (98-107); Glucose 143 mg/dL (74-106)
[2024-09-13 18:20] LABS: Alkaline Phosphatase 138 U/L (46-116)
--- NOTE | 2024-09-13 18:57 | DVH ---
COMPUTERIZED TOMOGRAPHY FACE NONCONTRAST REASON FOR EXAM: facial swelling COMPARISON: None TECHNIQUE: Thin axial slices of the face were obtained without intravenous contrast. 2D coronal and s agittal reformatted images were provided. Radiation optimization: All CT scans at this facility use a t least one of these dose optimization techniques: Automated exposure control mA and/or kV adjustment per patient size (includes targeted exams where dose is matched to clinical indication) or iterative reconstruction. RADIATION DOSE: CTDI: 67 mGy DLP: 1297 mGy-cm FINDINGS: There are several subcentimeter, morphologically normal lymph nodes scattered throughout t he upper neck, submandibular fat, and bilateral parotid regions. No abnormal mass is identified withi n the limitations of this noncontrast study. The globes are intact. There is no enlargement of the op tic nerves or extraocular muscles. There is no intraorbital mass. No appreciable fat stranding is janelle ntified in the face. The salivary glands are grossly symmetric and appear within normal limits. There is anterior subluxation of bilateral mandibular condyles with respect to the TMJ, possibly baseline for this patient. There is near-complete opacification of all paranasal sinuses. The right mastoid i s clear. There is trace fluid in the left mastoid. No facial bone fracture is identified. There is s evere dental disease there are periapical lucencies about left and right paracentral maxillary inciso rs. IMPRESSION: Severe dental disease with some maxillary periapical lucencies. Severe pansinusitis. This may be related to extension of dental disease into the sinuses. Correlate c linically for acute sinusitis. Consultation with a dentist is recommended. Trace fluid in the left mastoid. Correlate clinically for acute mastoiditis.
[2024-09-13 19:03] LABS: Urine Budding Yeast OCCASIONAL /hpf (None Seen); Urine Protein, UAD 1+ (Negative)
[2024-09-13] MEDS ORDERED: METH4PAK PO (20:14)
== END 2024-09-13 20:33 | disposition home or self-care (01) ==
LOC: ER 15:59
DX: J32.1 Chronic frontal sinusitis (principal); M79.642 Pain in left hand; M25.59 Pain in other specified joint; J45.909 Unspecified asthma, uncomplicated; F32.A Depression, unspecified; E11.9 Type 2 diabetes mellitus without complications; I10 Essential (primary) hypertension; E78.5 Hyperlipidemia, unspecified; K21.9 Gastro-esophageal reflux disease without esophagitis; F17.210 Nicotine dependence, cigarettes, uncomplicated; D86.9 Sarcoidosis, unspecified; M79.7 Fibromyalgia; Z88.1 Allergy status to other antibiotic agents; Z79.52 Long term (current) use of systemic steroids; Z79.899 Other long term (current) drug therapy; Z79.84 Long term (current) use of oral hypoglycemic drugs; Z79.4 Long term (current) use of insulin
CPT/HCPCS: 36415; 70486; 80053; 81001; 85025

== ENCOUNTER 2024-12-02 23:36 | Emergency (ER) | payer MEDICAID ==
[~2024-12-02] VITALS: Ht 157.5 cm; Wt 102.7 kg
[~2024-12-02 23:36] MED LIST changes: +METH4PAK PO
[2024-12-03 00:04] VITALS: PULSE 83; RESP 15; TEMP 98.3; O2SAT 94
[2024-12-03] MEDS: SODIUM CHLORIDE 0.9% 1,000 ML IV ONE (00:15)
[2024-12-03] MEDS: ONDANSETRON HCL 4 MG/2 ML VIAL IV ONE (00:15)
[2024-12-03 01:09] LABS: Hematocrit 38.8 % (36.0-46.0); Hemoglobin 13.1 g/dL (12.2-16.2); Mean Corpuscular Hemoglobin 28.6 pg (28.0-32.0); Mean Corpuscular Volume 84.6 fL (80.0-100.0); Nucleated Red Blood Cells % 0.1 %
[2024-12-03 01:20] LABS: Chloride 106 mmol/L (98-107); Potassium 4.1 mmol/L (3.5-5.1); Sodium 141 mmol/L (136-145)
[2024-12-03 01:21] LABS: Anion Gap 10 (5-15); Carbon Dioxide 25 mmol/L (20-31)
[2024-12-03 01:24] LABS: Calcium 8.2 mg/dL (8.7-10.4)
[2024-12-03 01:26] LABS: BUN/Creatinine Ratio 9.7 (10.0-20.0); Blood Urea Nitrogen 22 mg/dL (9-23)
[2024-12-03 01:32] LABS: Glucose 165 mg/dL (74-106)
--- NOTE | 2024-12-03 02:28 | DVH ---
CHEST RADIOGRAPH Indication: Chest pain Technique: 1 view Comparison: XY CHEST PORTABLE on DOS: 06/03/24, XY CHEST PORTABLE on DOS: 05/31/24, XY CHEST PORTABLE on DOS: 05/29/24, XY CHEST XRAY 1 VIEW on DOS: 03/26/24, XY CHEST XRAY 1 VIEW on DOS: 08/03/23 FINDINGS: Lines and Tubes: External leads. Lungs/Pleura: Perihilar interstitial prominence. No focal consolidation, pleural effusion or pneumoth orax. Cardiomediastinum: Heart size within normal limits. Other: No acute osseous abnormality. IMPRESSION: 1. Interstitial opacities may represent pulmonary edema, pneumonitis, or technique related artifact. No consolidation.
--- NOTE | 2024-12-03 02:52 | ED.PDOC ---
History of Present Illness HPI Comments Patient is a morbidly obese 54-year-old female who arrives to the ED today via EMS due to hypotensive concerns at home. Patient states she was feeling weak and checked her blood pressure to find that it was in the mid 70s over the mid 40s. Patient called EMS for assistance. EMS arrived and blood pressure was in the 90s over 50s. Patient arrives to the facility with a blood pressure of 90/62 with normal heart rate and respirations. Patient has a multitude of comorbidities including a history of hypertension as well as sarcoidosis, fibromyalgia and others. Patient is utilize Percocet and other opioids to manage global pain concerns. Chief Complaint: Low Blood Pressure Time Seen by MD: 23:46 Primary Care Provider: ERVIN LAMB Reviewed Notes: Nurses Notes, [employer] Farmer Notes Allergies: Coded Allergies: Cephalexin (Verified Allergy, Severe, 08/02/23) Hydroxychloroquine (Verified Allergy, Unknown, 06/06/20) Home Meds Active Scripts Methylprednisolone (Medrol Dosepak) 4 Mg Barrett, 4 MG PO UD, #21 TAB UAD Prov:ANDI MONZONP 09/13/24 Prednisone (Prednisone) 20 Mg Tab, 20 MG PO DAILY for 4 Days, #4 MG Prov:BAM GARZA COMMODITY SPECIALIST 06/03/24 Albuterol Sulfate (Albuterol Sulfate) 0.083 % Neb, 1 VIAL NEB Q4HPRN for 30 Days, #50 VIAL Prov:BAM GARZA COMMODITY SPECIALIST 06/03/24 Reported Medications Semaglutide (Ozempic) 2 Mg/3 Ml Inj, 0.5 MG SC QWEEKLY for DM, INJ 05/31/24 Insulin Regular (Human) (Humulin R U-500 (Concentr) 500 Unit/Ml Inj, 30 UNIT SC BID for DM , INJ 05/31/24 Omeprazole (Omeprazole Dr) 20 Mg Cap, 40 MG PO DAILY, CAP 05/30/24 Cetirizine HCl (Cetirizine Hydrochloride) 10 Mg Tab, 1 TAB PO DAILYPRN PRN 05/30/24 Metformin Hydrochloride (Metformin Hcl Er) 500 Mg Tab, 2 TAB PO QAM 08/02/23 Trazodone Hcl (Trazodone Hcl) 50 Mg Tab, 1 TAB PO HS 08/02/23 Meloxicam (Meloxicam) 15 Mg Tab, 1 TAB PO DAILY 08/02/23 Tizanidine Hydrochloride (TIZANIDINE HCL) 6 Mg Cap, 1 CAP PO QID PRN 08/02/23 Oxycodone HCl (Oxycodone Hydrochloride) 10 Mg Tab, 1 TAB PO TID 08/02/23 Albuterol Sulfate (Albuterol Sulfate Hfa) 108 Mcg/Act Aer, 2 PUFF INH Q4HPRN PRN 08/02/23 Fluticasone Propionate (Nasal) (Fluticasone Propionate) 50 Mcg/Act Spr, 1 SPRAY JACKI DAILY 08/02/23 Lisinopril (Lisinopril) 2.5 Mg Tab, 1 TAB PO DAILY 08/02/23 Atorvastatin Calcium (ATORVASTATIN CALCIUM) 10 Mg Tab, 1 TAB PO DAILY 08/02/23 Duloxetine HCl (Duloxetine HCl) 60 Mg Cap, 60 CAP PO BID 08/02/23 Empagliflozin (Jardiance) 10 Mg Tab, 1 TAB PO DAILY 08/02/23 Information Source: Patient, Emergency Med Personnel Mode of Arrival: Ambulatory Severity: Moderate Timing: Hours Duration: Since onset Prehospital treatment: Patient Services Assistant Past Medical History PAST MEDICAL HISTORY: Asthma, Depression, DM, GERD, High Lipids, HTN, Thyroid Past Medical History (Other): Sarcoidosis, fibromyalgia per patient Surgical History: Denies all surgeries EMERGENCY ROOM DOCTOR History: No Pertinent EMERGENCY ROOM DOCTOR History Family History Family History: Reviewed,noncontributory to illness Social History Smoker: Cigarettes Alcohol: Denies ETOH Use Drugs: Denies Drug Use Lives In: Home Constitutional: reports: weakness; denies: chills, diaphoresis, fatigue, fever, malaise, sweats, others EENTM: denies: blurred vision, double vision, ear bleeding, ear discharge, ear drainage, ear pain, ear ringing, eye pain, eye redness, hearing loss, mouth pain, mouth swelling, nasal discharge, nose bleeding, nose congestion, nose pain, photophobia, tearing, throat pain, throat swelling, voice changes, others Respiratory: denies: cough, hemoptysis, orthopnea, SOB at rest, shortness of breath, SOB with excertion, stridor, wheezing, others Cardiovascular: denies: chest pain, dizzy spells, diaphoresis, Dyspnea on exertion, edema, irregular heart beat, left arm pain, lightheadedness, palpitations, PND, syncope, others Gastrointestinal: denies: abdomen distended, abdominal pain, blood streaked bowels, constipated, diarrhea, dysphagia, difficulty swallowing, hematemesis, melena, nausea, poor appetite, poor fluid intake, rectal bleeding, rectal pain, vomiting, others Genitourinary: denies: abnormal vagina bleeding, burning, dyspareunia, dysuria, flank pain, frequency, hematuria, incontinence, pain, , vagina discharge, urgency, others Neurological: denies: dizziness, fainting, headache, left sided numbness, left sided weakness, numbness, paresthesia, pre-existing deficit, right sided numbness, right sided weakness, seizure, speech problems, tingling, tremors, weakness, others Musculoskeletal: reports: others (Global pain concerns); denies: back pain, gout, joint pain, joint swelling, muscle pain, muscle stiffness, neck pain Integumetry: denies: bruises, change in color, change in hair/nails, dryness, laceration, lesions, lumps, rash, wounds, others Allergic/Immunocompromised: denies: Difficulty Healing, Frequent Infections, Hives, Itching, others Hematologic/Lymphatic: denies: anemia, blood clots, easy bleeding, easy bruising, swollen glands, others Endocrine: denies: excessive hunger, excessive sweating, excessive thirst, excessive urination, flushing, intolerance to cold, intolerance to heat, unexplained weight gain, unexplained weight loss, others Psychiatric: denies: anxiety, bipolar disorder, depression, hopeless, panic disorder, schizophrenia, sleepless, suicidal, others Physical Exam General Appearance: Moderate Distress (Kalm-[id number] distress due to pain concerns and anxiety related to blood pressure issues.), Obese HEENT: Normal ENT Inspection, Pharynx Normal, TMs Normal Neck: Full Range of Motion, Non-Tender, Normal, Normal Inspection Respiratory: Chest Non-Tender, Lungs Clear, No Accessory Muscle Use, No Respiratory Distress, Normal Breath Sounds Cardiovascular: No Edema, No JVD, No Murmur, No Gallop, Normal Peripheral Pulses, Regular Rate/Rhythm Breast Exam: Deferred Gastrointestinal: No Organomegaly, Non Tender, No Pulsatile Mass, Normal Bowel Sounds, Soft Genitalia: Deferred Pelvic: Deferred Rectal: Deferred Extremities: Normal capillary refill, Normal range of motion Neurologic: Alert Cerebellar Function: NOT DONE Reflexes: NOT DONE Skin: Dry, Normal Color, Warm Lymphatic: No Adenopathy Was a procedure done? Was a procedure done?: No Differential Dx Considerations may include: Sepsis, electrolyte abnormality, hypotension, dehydration X-Ray, Labs, Meds, VS Vital Signs Date Time Temp Pulse Resp B/P (MAP) Pulse Ox O2 Delivery O2 Flow Rate FiO2 12/03/24 01:30 74 14 111/48 (69) 98 12/03/24 01:15 77 15 98/53 (68) 96 12/03/24 01:07 80 20 108/49 (68) 96 12/03/24 00:45 67 18 106/55 (72) 95 12/03/24 00:04 98.3 83 15 85/45 (58) 94 98.3 12/03/24 00:04 83 15 94 Room Air* 0 21 12/02/24 23:37 97.5 83 18 90/62 97 97.5 Lab Test 12/03/24 01:52 12/03/24 00:45 Range/Units Troponin I High Sensitivity 4 4 </=34 ng/L White Blood Count 10.2 4.4-10.8 10^3/uL Red Blood Count 4.59 4.0-5.20 10^6/uL Hemoglobin 13.1 12.2-16.2 g/dL Hematocrit 38.8 36.0-46.0 % Mean Corpuscular Volume 84.6 80.0-100.0 fL Mean Corpuscular Hemoglobin 28.6 28.0-32.0 pg Mean Corpuscular Hemoglobin Concent 33.8 32.0-36.0 g/dL Red Cell Distribution Width 16.2 H 11.8-14.3 % Platelet Count 218 140-450 10^3/uL Mean Platelet Volume 9.5 6.9-10.8 fL Neutrophils (%) (Auto) 61.6 37.0-80.0 % Lymphocytes (%) (Auto) 21.3 10.0-50.0 % Monocytes (%) (Auto) 5.7 0.0-12.0 % Eosinophils (%) (Auto) 10.4 H 0.0-7.0 % Basophils (%) (Auto) 1.0 0.0-2.0 % Neutrophils # (Auto) 6.3 1.6-8.6 10 ^3/uL Lymphocytes # (Auto) 2.2 0.4-5.4 10 ^3/uL Monocytes # (Auto) 0.6 0-1.3 10 ^3/uL Eosinophils # (Auto) 1.1 H 0-0.8 10 ^3/uL Basophils # (Auto) 0.1 0-0.2 10 ^3/uL Nucleated Red Blood Cells 0.1 % D-Dimer, Quantitative 0.35 0.0-0.49 mg/L FEU Sodium Level 141 136-145 mmol/L Potassium Level 4.1 3.5-5.1 mmol/L Chloride Level 106 98-107 mmol/L Carbon Dioxide Level 25 20-31 mmol/L Anion Gap 10 5-15 Blood Urea Nitrogen 22 9-23 mg/dL Creatinine 2.27 H 0.550-1.02 mg/dL Glomerular Filtration Rate Calc 25 >90 mL/min BUN/Creatinine Ratio 9.7 L 10.0-20.0 Serum Glucose 165 H 74-106 mg/dL Calcium Level 8.2 L 8.7-10.4 mg/dL B-Type Natriuretic Peptide 10.27 0-100 pg/mL Current Medications Medications (Trade) Dose Ordered Sig/Devan Route Start Time Stop Time Status Last Admin Sodium Chloride 1,000 ml @ 200 mls/hr Q5H ONCE IV 12/03/24 00:15 12/03/24 05:14 12/03/24 00:15 Ondansetron HCl (Zofran) 4 mg ONCE ONCE IV 12/03/24 00:15 12/03/24 00:17 DC 12/03/24 00:15 X-Ray, Labs, Meds, VS Comment Patient was never able to reduce urine for evaluation. Serum studies were unremarkable for any systemic process. EKG was unremarkable for any acute cardiac concern. Patient's blood pressure improved to an acceptable zone at time of discharge. Advised patient continue follow up with the primary care provider for recurrent hypotensive events as well as her multitude of comorbidities. Time of 1ST Reevaluation: 02:49 Reevaluation 1ST: Improved Consultation: PCP, Cardiology Patient Education/Counseling: Diagnosis, Treatment Family Education/Counseling: Diagnosis, Treatment SEPSIS Sepsis Screen Date sepsis recognized/suspect: Dec 03, 2024 Time Sepsis recognized/suspect: 0020 Recent Procedure: No On Antibiotic Therapy: No Respiratory Rate >20: No Heart Rate >90: No Temp<36 C (96.8 F) or >38.3 C: No SBP <90 or MAP <65 mmHG: Yes New Acute Mental Status Change: No Is the patient on CPAP, BIPAP,: No Physician Orders Chest Portable (12/03/24 00:08) Urinalysis (12/03/24 00:08) Heplock Iv (12/03/24 00:08) Electrocardigram (12/03/24 00:08) Troponin-I Hs (12/03/24 03:08) Sodium Chloride 0.9% (12/03/24 00:15) Vital Signs Date Time Temp Pulse Resp B/P (MAP) Pulse Ox O2 Delivery O2 Flow Rate FiO2 12/03/24 01:30 74 14 111/48 (69) 98 12/03/24 01:15 77 15 98/53 (68) 96 12/03/24 01:07 80 20 108/49 (68) 96 12/03/24 00:45 67 18 106/55 (72) 95 12/03/24 00:04 98.3 83 15 85/45 (58) 94 98.3 12/03/24 00:04 83 15 94 Room Air* 0 21 12/02/24 23:37 97.5 83 18 90/62 97 97.5 Laboratory Tests Test 12/03/24 00:45 White Blood Count 10.2 10^3/uL (4.4-10.8) Medications Medications Dose Ordered Sig/Devan Route Start Time Stop Time Status Last Admin Dose Admin Ondansetron HCl 4 mg ONCE ONCE IV 12/03/24 00:15 12/03/24 00:17 DC 12/03/24 00:15 Sodium Chloride 1,000 ml @ 200 mls/hr Q5H ONCE IV 12/03/24 00:15 12/03/24 05:14 12/03/24 00:15 Departure 1 Departure Time of Disposition: 02:50 Impression: Primary Impression: Hypotension Disposition: 01 HOME / SELF CARE / HOMELESS Condition: Stable Additional Instructions: Advised patient to follow up with the primary care provider for discussions related to medication use and continued evaluation of hypotension as well as other comorbidities. Discharged With: Self, Friend Critical Care Note Critical Care Time?: No Stability Stability form required: No Heart Score Heart Score: Heart Score Response (Comments) Value History Slightly Suspicious 0 EKG Repolarization Disturb 1 Age 45-64 1 Risk Factors 1 or 2 risk factors 1 Troponin Normal limit 0 Total 3 BRYAN CHAMORRO PAC Dec 03, 2024 02:52
[2024-12-03 03:03] VITALS: BP 115/40; PULSE 82; RESP 14; O2SAT 97
--- NOTE | 2024-12-03 13:51 | ECG ---
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
== END 2024-12-03 03:31 | disposition home or self-care (01) ==
LOC: ER 23:36
DX: I95.9 Hypotension, unspecified (principal); E11.9 Type 2 diabetes mellitus without complications; I10 Essential (primary) hypertension; F17.210 Nicotine dependence, cigarettes, uncomplicated; J45.909 Unspecified asthma, uncomplicated; Z88.1 Allergy status to other antibiotic agents
CPT/HCPCS: 36415; 71045; 80048; 83880; 84484; 85025; 85379; 93005; 96361; 96374; 99285; J2405; J7030